=== PATIENT | female | born 1980 | race Hispanic/Latino ===

== ENCOUNTER 2017-05-28 15:13 | Emergency (ER) | payer OTHER ==
[2017-05-28] MEDS ORDERED: Ketorolac Tromethamine 30 MG/ML VIAL ONE (15:38)
== END 2017-05-28 16:06 | disposition home or self-care (01) ==
LOC: ERS 15:13
DX: G89.29 Other chronic pain (principal); M54.5 Low back pain; I11.0 Hypertensive heart disease with heart failure; I50.9 Heart failure, unspecified; F41.9 Anxiety disorder, unspecified; F32.9 Major depressive disorder, single episode, unspecified; F17.210 Nicotine dependence, cigarettes, uncomplicated
CPT/HCPCS: 96372; J1885

== ENCOUNTER 2017-10-31 08:35 | Emergency (ER) | payer OTHER, SELFPAY ==
[2017-10-31] MEDS ORDERED: Ibuprofen 800 MG TAB ONE (10:57)
--- NOTE | 2017-10-31 11:45 | RAD ---
TWO VIEWS CHEST: HISTORY: Left rib pain. COMPARISON: 05/20/07. FINDINGS: Normal cardiac silhouette. The pulmonary vessels and hilum are normal. Costophrenic angles are alex r. No consolidation or masses. No pneumothorax or osseous abnormalities. IMPRESSION: No acute cardiopulmonary process. POS: [facility]
== END 2017-10-31 12:04 | disposition home or self-care (01) ==
LOC: ERS 08:35
DX: R07.89 Other chest pain (principal); D56.9 Thalassemia, unspecified; I11.0 Hypertensive heart disease with heart failure; I50.9 Heart failure, unspecified; F41.9 Anxiety disorder, unspecified; F32.9 Major depressive disorder, single episode, unspecified; F17.210 Nicotine dependence, cigarettes, uncomplicated; X58.XXXA Exposure to other specified factors, initial encounter
CPT/HCPCS: 71046

== ENCOUNTER 2019-10-07 18:44 | Inpatient (IN) | payer SELFPAY ==
[2019-10-07] MEDS ORDERED: Ondansetron PF 4 MG/2 ML Vial ONE (18:56)
[2019-10-07] MEDS ORDERED: Morphine 4 MG/ML VIAL ONE ×2 (18:56→21:06)
[2019-10-07 19:10] LABS: Hemoglobin 11.9 g/dL (12.0-16.0); Mean Corpuscular HGB CONC 34.6 g/dL (32.0-36.0); Mean Corpuscular Volume 75.4 fL (78.0-98.0); Mean Platelet Volume 10.5 fL (7.4-10.4); Platelet Count 194 thou/uL (130-400); Red Blood Cell (RBC) Count 4.58 mill/uL (4.20-5.40); White Blood Cell (WBC) Count 11.6 thou/uL (4.8-10.8)
[2019-10-07 19:14] LABS: BHCG - Serum Negative (NEGATIVE); Pregs Control Background? CLEAR/WHITE (CLR/WHITE); Pregs Control Bar Appear? YES (CONTROL BAR)
[2019-10-07 19:23] LABS: ALT (SGPT) 50 U/L (8-55); AST (SGOT) 72 U/L (5-34); Albumin 3.6 g/dL (3.5-5.0); Alkaline Phosphatase 121 U/L (40-110); Anion Gap 16 mmol/L (10-20); BUN (Urea Nitrogen) 5 mg/dL (7.0-18.7); Bilirubin, Total 5.9 mg/dL (0.2-1.2); Calc. Creatinine Clearance 0 mL/min (70-130); Calcium 8.7 mg/dL (7.8-10.44); Carbon Dioxide 27 mmol/L (22-29); Chloride 95 mmol/L (98-107); Estimated GFR-MDRD Greater than 90; Globulin 3.1 g/dL (2.4-3.5); Glucose 97 mg/dL (70-105); Lipase 12 U/L (8-78); Protein, Total 6.7 g/dL (6.0-8.3); Sodium 135 mmol/L (136-145)
[2019-10-07 19:27] LABS: Anisocytosis SLIGHT = 6-15 cells (100X) (0-5/hpf); Band 8 % (5-11); Eosinophils 1 % (0-10); Hypochromia SLIGHT = 6-15 cells (100X) (0-5/hpf); Lymphocytes 12 % (21-51); MDiff Complete? YES; Microcytosis SLIGHT = 6-15 cells (100X) (0-5/hpf); Monocytes 5 % (0-10); Neutrophil 74 % (42-75); Ovalocytes SLIGHT = 2-5 cells (100X) (0-1/hpf); Platelet Morphology Comment Appears Adequate; Polychromasia SLIGHT = 2-3 cells (100X) (0-2/hpf); Target Cells SLIGHT = 2-5 cells (100X) (0-1/hpf)
[2019-10-07 19:33] LABS: Potassium 2.8 mmol/L (3.5-5.1)
--- NOTE | 2019-10-07 19:37 | ULT ---
ULTRASOUND ABDOMEN LIMITED: (RIGHT UPPER QUADRANT) DATE: 10/07/2019 HISTORY: 39-year-old female with postprandial abdominal pain, nausea, and vomiting FINDINGS: Poor visualization of abdominal organs due to body habitus. Gallbladder: Normal wall thickness. No evidence of pericholecystic fluid or gallstones. Liver: Enlarged. Diffusely increased echogenicity, consistent with fatty liver. Common duct caliber:6 mm. Right kidney: No hydronephrosis. Pancreas: Nonspecific sonographic appearance. IMPRESSION: 1) Hepatic steatosis and hepatomegaly. 2) common duct caliber at upper limits of normal or slightly dilated. 3) poor visualization of intra-abdominal contents due to body habitus.
[2019-10-07 20:40] LABS: Bilirubin 1+ (Negative); Blood, Urine Negative (Negative); Clarity Turbid (Clear); Glucose, Urine (Dipstick) Normal (Negative); Leukocyte 250 Leu/uL (Negative); Mucous/LPF 1+ LPF (<2+); Nitrite Negative (Negative); Protein, Urine (Dipstick) 30 mg/dL (Neg-Trace); Renal Epithelial 0-3 HPF (None Seen); Urobilinogen Greater than 12 mg/dL (Less than 2); WBC/HPF 21-50 HPF (0-3)
[2019-10-07 20:49] LABS: Bacteria/HPF 2+ HPF (None Seen)
[2019-10-07 21:08] LABS: Bilirubin, Direct 2.7 mg/dL (0.1-0.3); Bilirubin, Total 5.8 mg/dL (0.2-1.2)
[2019-10-07] MEDS ORDERED: cefTRIAXone\\ROCEPHIN 1 GM VIAL ONE ×2 (21:13→21:17)
[2019-10-07] MEDS ORDERED: Potassium Chloride 20 MEQ TAB ONE ×2 (21:13→21:17)
--- NOTE | 2019-10-07 21:31 | RAD ---
RADIOGRAPH CHEST 1 VIEW: DATE: 10/07/2019 HISTORY: 39-year-old female with cough FINDINGS: There are no airspace densities, pulmonary edema, pneumothorax, or cardiomegaly. The lateral costophr enic angles are sharp. IMPRESSION: No acute cardiopulmonary findings.
[2019-10-07 22:17] VITALS: BMI 40.5
[2019-10-07] MEDS ORDERED: Acetaminophen 650 MG Suppository PR PRN (22:32)
[2019-10-07] MEDS ORDERED: Potassium Chloride 40 MEQ in Sodium Chloride 0.9% 250 ML 250 ML IVPB SCH (23:00)
[2019-10-07] MEDS ORDERED: Magnesium 2 GM/50 ML 50 GM in Premix Bag 1 BAG IVPB SCH (23:00)
[2019-10-07 23:07] LABS: INR-International Normal Ratio 1.1; PTT 30.4 SEC (22.9-36.1); Prothrombin Time 14.6 SEC (12.0-14.7)
[2019-10-07 23:11] LABS: Amphetamine Not Detected (NotDetected); Barbiturates Screen Not Detected (NotDetected); Benzodiazepine Screen Not Detected (NotDetected); Cocaine Metabolite Screen Not Detected (NotDetected); Medtox Control Line Valid? VALID (VALID); Medtox Reader # READER 1; Methadone Not Detected (NotDetected); Methamphetamine Not Detected (NotDetected); Opiate Screen Detected (NotDetected); Oxycodone Screen Not Detected (NotDetected); Phencyclidine (PCP) Not Detected (NotDetected); THC/Cannabinoid Screen Detected (NotDetected); Tricyclic Screen Not Detected (NotDetected)
[2019-10-07 23:17] LABS: Lactic Acid 1.1 mmol/L (0.5-2.2)
[2019-10-07] MEDS: Sodium Chloride 0.9% 1,000 ML IV SCH (23:19)
--- NOTE | 2019-10-07 23:20 | RAD ---
Radiograph abdomen one view: 39-year-old female with abdominal pain, nausea, and vomiting. FINDINGS: Spleen is enlarged. Liver is enlarged. Gas present in ascending and transverse colon. Gas present in multiple nondilated small bowel loops in mid and left abdomen. No gaseous gastric distention. IMPRESSION: 1. Hepatosplenomegaly. 2. Nonobstructive bowel gas pattern.
[2019-10-07 23:22] LABS: Alcohol Less than 10 mg/dL (Less than 10); Bilirubin, Direct 2.7 mg/dL (0.1-0.3); CK (CPK) 18 U/L (29-168)
[2019-10-07] MEDS ORDERED: Magnesium 2 GM/50 ML 2 GM in Premix Bag 1 BAG IVPB SCH (23:30)
[2019-10-07] MEDS ORDERED: Ketorolac Tromethamine 30 MG/ML VIAL IVP SCH (23:45)
[2019-10-08 00:27] LABS: HBCM Index 0.12 S/CO (0-0.79); HBSAg Index 0.23 S/CO (0-0.99); Hep A IgM AB Non-Reactive (NonReactive); Hep A IgM S/CO 0.17 S/CO (0-0.79); Hep B Surf Ag Non-Reactive S/CO (NonReactive); Hep C IgG Ab Non-Reactive (NonReactive); Hep C Index 0.28 S/CO (0-0.79); Hepatitis B Core IgM Abs Non-Reactive (NonReactive)
[2019-10-08] MEDS: Thiamine HCl 200 MG/2 ML VIAL SLOW IVP SCH (00:40)
[2019-10-08 00:56] LABS: Anion Gap 13 mmol/L (10-20); BUN (Urea Nitrogen) 5 mg/dL (7.0-18.7); Calc. Creatinine Clearance 272 mL/min (70-130); Calcium 7.9 mg/dL (7.8-10.44); Carbon Dioxide 29 mmol/L (22-29); Chloride 97 mmol/L (98-107); Estimated GFR-MDRD Greater than 90; Glucose 90 mg/dL (70-105); Sodium 136 mmol/L (136-145)
[2019-10-08 01:04] LABS: Potassium 2.6 mmol/L (3.5-5.1)
--- NOTE | 2019-10-08 03:55 | PDOC.HHP ---
Hospitalist HPI - History of Present Illness n/v and abdo pain History of Present Illness: Patient presents with complaints of abdominal pain and n/v for the last month, initially it was worse in the mornings. She states it continued to worsen and for the last 3 weeks she has been unable to tolerate oral intake. Denies any weight loss. States she has been experiencing RUQ pain with increased abdominal girth. Reports having dark stools but they are not black or maroon. No bright red blood per rectum. She states the vomiting is daily and up to 5 or 6 times a day. She denies any diarrhea. Has not had any fevers at home. Has not sought medical attention until now. Reports having a history of a "fatty liver". Upon further questioning, patient states 3 weeks ago when her symptoms worsened she switched from drinking malt liquor daily, to drinking 3 glasses of sprite with vodka every day after work. Three days ago, she stopped drinking alcohol completely and denies experiencing any chills, sweats or tremors. No history of alcohol withdrawal. Reports smoking marijuana on occasion, otherwise denies any drug use. ED Course: In the ED she had labs done that were notable for a WCC of 11.6, Hgb 11.9, MCV 75.4, Platelets 194. Na+ 135, K+ 2.8, BUN 5, creat 0.58, GFR >90. Tbili elevated 5.9, AST 72, ALT 50. Lipase normal at 12. Abdo US done showed hepatic steatosis with hepatomegaly. CBD was in the upper limits of normal/slightly dilated measuring 6mm. CXR was unremarkable. UA notable for turbid urine, 250 leukocyte, 30 protin, trace ketones, urobilinogen >12, Bili 1+. 4-6 RBC, 21-50 WBC, 2+ bacteria. She was started on Rocephin for the UTI. Also given 40 mEq of PO potassium for the hypokalemia. Received 8 mg of Morphine total and Ondansetron for nausea. She also received 1L NS. Case was discussed with Dr. Macedo and Dr. Pozo, both consulted by ED physician. Per Dr. Pozo, plan is likely for MRCP/ERCP in the AM. Hospitalist ROS - Review of Systems Constitutional: reports: malaise. denies: fever, chills, sweats, weakness, other Eyes: denies: pain, vision change, conjunctivae inflammation, eyelid inflammation, redness, other ENT: denies: ear pain, ear discharge, nose pain, nose discharge, nose congestion , mouth pain, mouth swelling, throat pain, throat swelling, other Cardiovascular: denies: chest pain, palpitations, orthopnea, paroxysmal noc. dyspnea, edema, light headedness, other Gastrointestinal: reports: nausea, vomiting, abdominal pain (RUQ pain, occasional epigastric burning), other (abdominal bloating) Genitourinary: denies: dysuria, frequency, incontinence, hematuria, retention, other Musculoskeletal: denies: neck pain, shoulder pain, arm pain, back pain, hand pain, leg pain, foot pain, other Skin: reports: other (long standing chronic pruritic rash treated with selsun blue) Neurological: denies: weakness, numbness, incoordination, change in speech, confusion, seizures, other - Medication Medications: Active Medications ALLERGIES: No known drug allergies. CURRENT MEDICATIONS: None. Generic Name Dose Route Start Last Admin Trade Name Freq PRN Reason Stop Dose Admin Sodium Chloride 1,000 mls @ 65 mls/hr 10/07/19 22:45 10/07/19 23:19 Normal Saline 0.9% IV 1,000 mls .[id number] KAITLIN Administration Thiamine HCl 100 mg 10/08/19 01:00 10/08/19 00:40 Thiamine Hcl SLOW IVP 100 mg Q24HR KAITLIN Administration Hospitalist History - Past Medical History Cardiac: reports: CAD, CHF, HTN, Other (cardiomyopathy) Heme/Onc: reports: Other (Thalassemia B minor.) Psych: reports: Anxiety, Depression Musculoskeletal: reports: Chronic low back pain - Past Surgical History Past Surgical History: reports: Tubal Ligation - Social History Smoking Status: Current every day smoker Alcohol: reports: Heavy Drugs: reports: marijuana Living Situation: With Family Activity level: independent ambulation - Exam General Appearance: NAD, awake alert Eye: PERRL, anicteric sclera ENT: normocephalic atraumatic, no oropharyngeal lesions, dry oral mucosa Neck: supple, symmetric, no lymphadenopathy Heart: RRR Respiratory: CTAB, no wheezes, no rales, no ronchi, normal chest expansion, no tachypnea Gastrointestinal: soft, no guarding, no rigidity, tender to palpation, distended (soft, but distended) Extremities: no edema Skin: normal turgor Skin - other findings: erythematous pruritic areas right fore finger, left elbow , back, chronic Neurological: no focal deficits, no new deficit Musculoskeletal: normal tone, normal strength, no muscle wasting Psychiatric: normal affect, normal behavior, A&O x 3 Hospitalist Results - Labs Result Diagrams: 10/08/19 05:02 10/08/19 00:00 Lab results: WBC 11.6 thou/uL (4.8-10.8) H 10/07/19 18:56 Hgb 11.9 g/dL (12.0-16.0) L 10/07/19 18:56 Hct 34.5 % (36.0-47.0) L 10/07/19 18:56 MCV 75.4 fL (78.0-98.0) L 10/07/19 18:56 Plt Count 194 thou/uL (130-400) 10/07/19 18:56 Band Neuts % (Manual) 8 % (5-11) 10/07/19 18:56 Sodium 136 mmol/L (136-145) 10/08/19 00:00 Potassium 2.6 mmol/L (3.5-5.1) L* 10/08/19 00:00 Chloride 97 mmol/L (98-107) L 10/08/19 00:00 Carbon Dioxide 29 mmol/L (22-29) 10/08/19 00:00 BUN 5 mg/dL (7.0-18.7) L 10/08/19 00:00 Creatinine 0.51 mg/dL (0.6-1.1) L 10/08/19 00:00 Glucose 90 mg/dL (70-105) 10/08/19 00:00 Lactic Acid 1.1 mmol/L (0.5-2.2) 10/07/19 22:52 Calcium 7.9 mg/dL (7.8-10.44) 10/08/19 00:00 Total Bilirubin 5.8 mg/dL (0.2-1.2) H 10/07/19 18:56 AST 72 U/L (5-34) H 10/07/19 18:56 ALT 50 U/L (8-55) 10/07/19 18:56 Alkaline Phosphatase 121 U/L (40-110) H 10/07/19 18:56 Creatine Kinase 18 U/L (29-168) L 10/07/19 22:52 B-Natriuretic Peptide Less than 10.0 pg/mL (0-100) 10/07/19 22:52 Serum Total Protein 6.7 g/dL (6.0-8.3) 10/07/19 18:56 Albumin 3.6 g/dL (3.5-5.0) 10/07/19 18:56 Lipase 12 U/L (8-78) 10/07/19 18:56 Urine Ketones Trace mg/dL (Negative) A 10/07/19 20:11 Urine Blood Negative (Negative) 10/07/19 20:11 Urine Nitrite Negative (Negative) 10/07/19 20:11 Ur Leukocyte Esterase 250 Sam/uL (Negative) A 10/07/19 20:11 Urine RBC 4-6 HPF (0-3) A 10/07/19 20:11 Urine WBC 21-50 HPF (0-3) A 10/07/19 20:11 Ur Squamous Epith Cells 4-6 HPF (0-3) A 10/07/19 20:11 Urine Bacteria 2+ HPF (None Seen) A 10/07/19 20:11 - Radiology Interpretation US - abdomen Status: report reviewed by sd Hospitalist H&P A/P - Problem (1) Abdominal pain Code(s): R10.9 - UNSPECIFIED ABDOMINAL PAIN Status: Acute (2) Increased abdominal girth Code(s): R19.8 - OTH SYMPTOMS AND SIGNS INVOLVING THE DGSTV SYS AND ABDOMEN Status: Acute (3) Nausea & vomiting Code(s): R11.2 - NAUSEA WITH VOMITING, UNSPECIFIED Status: Acute (4) Alcohol abuse Code(s): F10.10 - ALCOHOL ABUSE, UNCOMPLICATED Status: Chronic (5) Hyperbilirubinemia Code(s): E80.6 - OTHER DISORDERS OF BILIRUBIN METABOLISM Status: Acute (6) Hepatic steatosis Code(s): K76.0 - FATTY (CHANGE OF) LIVER, NOT ELSEWHERE CLASSIFIED Status: Chronic (7) Obesity Code(s): E66.9 - OBESITY, UNSPECIFIED Status: Acute (8) Cardiomyopathy Code(s): I42.9 - CARDIOMYOPATHY, UNSPECIFIED Status: Chronic (9) Hypertension Code(s): I10 - ESSENTIAL (PRIMARY) HYPERTENSION Status: Chronic (10) Thalassemia minor Code(s): D56.3 - THALASSEMIA MINOR Status: Chronic - Plan Plan: Monitor LFTs. add-on direct bili and hepatitis panel. ED has consulted surgery and GI. For ERCP/MRCP in the AM. Patient on clear liquids. Toradol x 1 for pain. ASE protocol. Check alcohol level. Urine drug screen. Continue IV Antibiotics for UTI Urine culture pending. CODE STATUS FULL. Discussed with Dr. Givens who agrees with plan as above.
[2019-10-08] MEDS: Fentanyl 100 MCG/2 ML VIAL SLOW IVP PRN ×3 (05:06→20:18)
[2019-10-08 05:09] LABS: #Eosinphils 0.3 thou/uL (0.0-0.7); #Lymphocytes 1.7 thou/uL (1.20-3.40); #Monocytes 0.6 thou/uL (0.11-0.59); #Neutrophils 6.1 thou/uL (1.40-6.50); %Basophils 0.4 % (0.0-1.0); %Eosinophils 3.8 % (0.0-10.0); %Lymphocytes 19.3 % (21.0-51.0); %Monocytes 6.6 % (0.0-10.0); %Neutrophils 69.9 % (42.0-75.0); Hemoglobin 9.6 g/dL (12.0-16.0); Mean Corpuscular HGB CONC 34.5 g/dL (32.0-36.0); Mean Corpuscular Hemoglobin 26.1 pg (27.0-31.0); Mean Corpuscular Volume 75.8 fL (78.0-98.0); Platelet Count 149 thou/uL (130-400); RBC Distribution Width 16.8 % (11.5-14.5); Red Blood Cell (RBC) Count 3.65 mill/uL (4.20-5.40); White Blood Cell (WBC) Count 8.7 thou/uL (4.8-10.8)
[2019-10-08 05:30] LABS: ALT (SGPT) 35 U/L (8-55); AST (SGOT) 51 U/L (5-34); Albumin 2.7 g/dL (3.5-5.0); Alkaline Phosphatase 89 U/L (40-110); Anion Gap 11 mmol/L (10-20); BUN (Urea Nitrogen) 5 mg/dL (7.0-18.7); Bilirubin, Total 4.1 mg/dL (0.2-1.2); Calc. Creatinine Clearance 289 mL/min (70-130); Calcium 7.4 mg/dL (7.8-10.44); Carbon Dioxide 26 mmol/L (22-29); Chloride 100 mmol/L (98-107); Estimated GFR-MDRD Greater than 90; Globulin 2.5 g/dL (2.4-3.5); Glucose 83 mg/dL (70-105); Magnesium 2.1 mg/dL (1.6-2.6); Potassium 3.1 mmol/L (3.5-5.1); Protein, Total 5.2 g/dL (6.0-8.3); Sodium 134 mmol/L (136-145)
[2019-10-08] MEDS ORDERED: Potassium Chloride 20 MEQ in Premix Bag 1 BAG IVPB SCH ×2 (06:00→06:15)
[2019-10-08] MEDS ORDERED: Potassium Chloride 10 MEQ in Premix Bag 1 BAG IVPB SCH (06:00)
[2019-10-08] MEDS: Famotidine/PF 20 mg/2ml Vial SLOW IVP SCH ×2 (08:14→20:23)
[2019-10-08] MEDS: Folic Acid 1 MG TAB PO SCH (08:15)
[2019-10-08] MEDS ORDERED: Potassium Chloride 40 MEQ in Premix Bag 1 BAG IVPB SCH (08:45)
--- NOTE | 2019-10-08 10:09 | PDOC.EVN ---
Event Note - Event Note Event Note: Continues to report pain. Also reports that her urine has been dark, discolored and scant for about 3 weeks. Denies dysuria. Denies taking opioids or other drugs outside of EtOH and marijuana. Pain is RUQ anterior and posterior. Slight TTP in the RUQ. Not really over the GB, but seems be more under the ribs. No guarding. Heart is regular, lungs clear. No edema. Discussed with Dr. Pozo. Does not suspect cholecystitis. He anticipates EGD tomorrow. Possible UTI. Cover with abx. CT abd., pelvis to assess urinary tract. Follow up cultures. PO tramadol for pain.
[2019-10-08] MEDS: Potassium Chloride 20 MEQ in Premix Bag 1 BAG IVPB SCH ×2 (10:36→16:03)
--- NOTE | 2019-10-08 10:59 | CON ---
DATE OF CONSULTATION: 10/08/2019 REASON FOR CONSULTATION: Abdominal pain, nausea, vomiting, and questionable history of gallbladder disease. HISTORY OF PRESENT ILLNESS: Ms. Carmina Perez is a very pleasant, 39-year-old female, came to the ER last night with abdominal pain, nausea, and vomiting. The patient's abdominal pain started approximately three weeks ago. She also had nausea and vomiting off and on. The pain is over the right upper quadrant and right lumbar area and going to the right flank. The patient is not able to eat any because of abdominal pain. She also gives history of some dark stool recently. The patient had an abdominal sonogram, which revealed no gallstones. There is no gallbladder wall thickening. Also, the CBD is 6 mm upper limit of normal. Although, there is no mention of dilation of CBD, it is actually normal in caliber. The patient's liver function test is slightly high, AST is around 65 and bilirubin is 2.7. The patient has history of hypertension, cardiomyopathy, and congestive heart failure. Apparently, she was hospitalized 11 years ago and was seen by Dr. Maurice Juarez. She was transferred to [facility]. Apparently, she was on some medicine for three months and subsequently, she quit taking medications. She had done well over the last 12 years. The patient gives history of dyspnea with exertion and extreme fatigue and tiredness lately. She also has history of some allergies with coughing and sneezing. The patient had no chest pain. No palpitation. No orthopnea. No PND. The patient also gives history of having some dark stool recently. She also has history of thalassemia minor diagnosed many years ago. The patient's bowel movements are fairly regular. No history of hematochezia, but diffuse. She has had dark stool recently. Relevant to the history that she does drink alcohol heavily. She was drinking more liquor, the 24 ounces every day and now cut down to a three glass of vodka with Sprite recently. There is no history of drug abuse. ALLERGIES: NO DRUG ALLERGIES. SOCIAL HISTORY: The patient is a smoker, smokes one-half packet of cigarettes per day. She will drink alcohol heavily until recently and has cut down to a three glass of vodka. No illicit drug abuse. MEDICAL ILLNESS: 1. Hypertension, not on medication. 2. History of cardiomyopathy, CHF several years ago and not seen by expanded duty dental assistant for a long time. 3. Obesity. 4. History of thalassemia minor. SURGERIES: Status post tubal ligation. No other surgeries. FAMILY HISTORY: No family history of heart disease, cancer, stroke, hypertension, or diabetes. REVIEW OF SYSTEMS: Ten-point system reviewed. CONSTITUTIONAL: No history of any fever. No weight loss. History of fatigue with tiredness recently. HEENT: Head, no chronic headache. No dizziness. Eyes, no diplopia. No double vision or blurred vision. Ears, no hearing loss. No bleeding. Nose, no nosebleed. History of nasal congestion. Coughing over the last few weeks. Throat, no sore throat or dysphagia LUNGS: History of mild coughing and congestion. CARDIOVASCULAR SYSTEM: History of dyspnea of recent onset. No orthopnea or PND. No chest pain. ABDOMEN: Abdominal pain, nausea, vomiting, and history of some dark stools. : No dysuria, hematuria, or frequent urination. MUSCULOSKELETAL: Some back pain and arthralgias. NEUROPSYCHIATRY: Nonrelevant. PHYSICAL EXAMINATION: GENERAL: She appears comfortable, in no distress. She is obese. VITAL SIGNS: Afebrile, pulse is 81, and blood pressure 104/67. HEENT: Conjunctivae mildly icteric. NECK: Supple. No adenitis or thyromegaly noted. CARDIOVASCULAR SYSTEM: First and second heart sounds heard. LUNGS: Clear to auscultation. GI: Abdomen is soft. Abdomen is nondistended. Abdomen is tender over the right upper quadrant, right lumbar area, and over the right flank. There is no rebound or guarding. Bowel sounds active. EXTREMITIES: Reveal no edema. LABORATORY DATA: Lab data done on admission CBC; WBC is 11,600, hemoglobin 11.9, hematocrit 34.5, MCV 70.4, platelet count is 194,000, polymorphs 74, bands 8, and lymphocytes 12. Today, WBC dropping to 8700, hemoglobin 9.6, hematocrit 27.7, polymorphs 69, lymphocytes 19, and monocytes 8. Chemistry panel, she has a normal chem-7 today except for mild hypokalemia, potassium 2.6 on admission, came up to 3.1. BUN is 5, creatinine is 0.48, glucose is 83, calcium is 7.4, and magnesium is 2.1. Bilirubin yesterday was 2.7, none done today. AST is 51, ALT is 35, alkaline phosphatase 89, albumin 2.7, and globulin 2.5. Abdominal sonogram shows fatty liver, normal caliber CBD, and no gallstones or no gallbladder wall thickening. CLINICAL IMPRESSION: 1. Abdominal pain, very typical for cholecystitis, but; however, the physical findings and lab data does not support she has acute cholecystitis. She probably has fatty liver and some remote alcohol liver disease. 2. History of nausea, vomiting, and also history of some dark stool recently. 3. Obesity. 4. Hypertension. 5. History of thalassemia minor. 6. History of cardiomyopathy with heart failure in the past. RECOMMENDATION: 1. Follow up LFTs. 2. May consider EGD because of abdominal pain, nausea, vomiting, and also she has some dark stool. 3. We would recommend echocardiogram to see how her cardiac function is, as she has history of recent onset of dyspnea. Job ID: [id number]
[2019-10-08] MEDS ORDERED: Iopamidol 370 76% 100 ML VIAL ONE (13:41)
--- NOTE | 2019-10-08 14:02 | CT ---
CT ABDOMEN AND PELVIS WITH IV CONTRAST: Multiple axial tomograms obtained with IV enhancement. Oral contrast was administered. INDICATION: Abdominal pain. Right upper quadrant pain. COMPARISON: Comparison is made to a prior CT abdomen and pelvis from 2007. FINDINGS: Images through the lung bases reveal a 1 cm nodule in the anterior aspect of the right lower lobe whi ch was not present on the prior exam. This will need followup evaluation. The liver exhibits diffuse low attenuation consistent with fatty infiltration. The spleen and pancreas appear unremarkable. Gallbladder is mildly distended. No pericholecystic edema. Recent gallbladder ultrasound from yeste rday showed no evidence of gallstones. Gallbladder function studies might be of benefit if there is concern of gallbladder symptoms. Adrenal glands normal. Kidneys unremarkable. Small bowel loops appear normal. The appendix appears normal. Colon is unremarkable. Aorta normal. No adenopathy. Images through the pelvis show unremarkable uterus. There is a cyst involving the right ovary which measures up to 3 cm in the coronal plane. This exhibits peripheral enhancement possibly representing an involuting follicle. Ovaries otherwise unremarkable. IMPRESSION: 1. The gallbladder is mildly distended. No evidence of gallstones were seen on yesterday's ultrasou nd exam. Consider gallbladder function study with nuclear medicine given the history of right upper quadrant pain. 2. Right ovarian cyst. 3. Otherwise, no acute finding. POS: [facility]
--- NOTE | 2019-10-08 15:14 | CON ---
DATE OF CONSULTATION: CHIEF COMPLAINT: Abdominal pain. HISTORY OF PRESENT ILLNESS: Ms. Perez is a 39-year-old woman with about a one-month history of abdominal discomfort. She describes this as being all across to the right side and worse when she bends over. She states that for the past 3 weeks, the pain has been more constant and that she has been unable to eat normally, although she is still taking liquids. She has had episodes of nausea and vomiting, and her stool has been dark in color. She does have a history of significant alcohol intake. She states that she started drinking when she was 30. Her alcohol use was accelerated over the past year. She denies any history of withdrawal, but has not been abstinent for any prolonged period of time recently. She does notice that her skin became paler to her and also that her urine seems darker. She was evaluated in the emergency room, and an ultrasound was negative for gallstones, wall thickening, or pericholecystic fluid. She was noted to have hepatomegaly, and she does report a history of fatty liver diagnosed in the past. Her common bile duct was felt to be at the upper limits of normal or slightly dilated. Her white count was mildly elevated at 11.6, but she does not have a left shift or bandemia. Her bilirubin was quite elevated at 5.8, and this was a mixed hyperbilirubinemia with 2.7 direct. AST was mildly elevated at 72, alkaline phosphatase is mildly elevated at 121, but her other LFTs were normal. Today, her bilirubin has come down to 4.1 and her AST is 51, and her alkaline phosphatase is in the normal range now at 89. PAST MEDICAL HISTORY: Alcohol abuse, thalassemia minor, and heart failure related to , hypertension, morbid obesity with BMI 40. MEDICATIONS: She is not taking any medications at home. ALLERGIES: SHE HAS NO KNOWN DRUG ALLERGIES. PAST SURGICAL HISTORY: Tubal ligation. SOCIAL HISTORY: Positive for tobacco use and alcohol abuse and marijuana use. No other drugs. REVIEW OF SYSTEMS: Ten-system review of systems is negative except per HPI and chronic back pain. PHYSICAL EXAMINATION: VITAL SIGNS: The patient has been afebrile since her admission, heart rate 87, respirations 22, 95% saturated on room air, blood pressure 125/85. GENERAL: A pleasant woman, in no acute distress, who is comfortably resting in bed. She is slightly jaundiced, which is more noticeable on her abdominal area. She does not have any icterus of note. HEENT: Unremarkable. NECK: Supple without lymphadenopathy or thyroid nodules. HEART: Regular in its rate and rhythm. I do not appreciate any murmurs, rubs, or gallops. LUNGS: Clear to auscultation bilaterally. ABDOMEN: She does have a palpable enlarged spleen and liver, which is slightly tender. She is tender along the entire palpable portion of the liver, but without any focal tenderness in this area. No palpable masses or hernias. EXTREMITIES: Warm, well perfused. She does not have any edema. NEUROLOGIC: No focal deficits. PSYCHIATRIC: Alert, oriented, and appropriate. LABORATORY DATA: As per HPI. IMAGING: As per . ASSESSMENT: 1. Right upper quadrant pain and elevated LFTs without evidence of gallstones. Her bile duct is upper level of normal. 2. Hyperbilirubinemia with some cholestasis and some primary liver contribution most likely. Given her recent heavy alcohol use, I suspect she may have duid-ax-[id number] alcoholic hepatitis. She has thalassemia minor and chronic anemia resulting, and I have ordered an iron level. I doubt this is very high, but this could be contributing to liver disease as well. A CT has been ordered by her admitting physician, and I will await these results. I doubt that she has acalculous cholecystitis given the normal appearance of her gallbladder after 3 weeks of symptom. However, HIDA scan would be very reasonable to further evaluate for this possibility. I have not ordered it since Dr. Moody informs me that he intends to perform an EGD tomorrow morning, and I do not think that we would be able to do them both at the same time as she would receive narcotics most likely for the procedure, but this could be performed the following day if her symptoms do not resolve. If she improves, then we will defer this to outpatient. I will continue to follow while she is an inpatient, but I do not anticipate that laparoscopic cholecystectomy would be beneficial at this time. Job ID: [id number]
[2019-10-08] MEDS: Sodium Chloride 0.9% 1,000 ML IV SCH (20:24)
[2019-10-08] MEDS ORDERED: cefTRIAXone\\ROCEPHIN 2 GM in Sodium Chloride 0.9% 100 ML IVPB SCH (21:00)
[2019-10-09] MEDS: Thiamine HCl 200 MG/2 ML VIAL SLOW IVP SCH (01:25)
[2019-10-09 06:04] LABS: ALT (SGPT) 34 U/L (8-55); AST (SGOT) 67 U/L (5-34); Albumin 2.6 g/dL (3.5-5.0); Alkaline Phosphatase 87 U/L (40-110); Bilirubin, Direct 2.2 mg/dL (0.1-0.3); Bilirubin, Total 3.4 mg/dL (0.2-1.2); Protein, Total 5.3 g/dL (6.0-8.3)
[2019-10-09] MEDS: Famotidine/PF 20 mg/2ml Vial SLOW IVP SCH ×2 (09:43→20:56)
[2019-10-09] MEDS: Folic Acid 1 MG TAB PO SCH (09:43)
[2019-10-09 10:43] LABS: Anion Gap 16 mmol/L (10-20); BUN (Urea Nitrogen) Less than 4 mg/dL (7.0-18.7); Calc. Creatinine Clearance 315 mL/min (70-130); Calcium 7.7 mg/dL (7.8-10.44); Carbon Dioxide 20 mmol/L (22-29); Chloride 106 mmol/L (98-107); Estimated GFR-MDRD Greater than 90; Glucose 74 mg/dL (70-105); Potassium 3.4 mmol/L (3.5-5.1); Sodium 139 mmol/L (136-145)
[2019-10-09] MEDS: Fentanyl 100 MCG/2 ML VIAL SLOW IVP PRN (13:26)
[2019-10-09] MEDS: Sodium Chloride 0.9% 1,000 ML IV SCH ×2 (13:27→23:37)
--- NOTE | 2019-10-09 14:05 | NM ---
HEPATOBILIARY SCAN: HISTORY:Right upper quadrant abdominal pain, no gallstones and ultrasound of 10/07/2019 and distended gallbladder on the previous day CT scan RADIOPHARMACEUTICAL: 4.5 mCi Technetium 99m Mebrofenin injected intravenously FINDINGS: There is normal tracer extraction by the liver with normal excretion into the biliary tracts and smal l bowel loops and normal filling of the gallbladder. The calculated gallbladder ejection fraction following an IV infusion of 2 mcg CCK-8 over 30 minutes measures 24%. IMPRESSION:Chronic acalculous cholecystitis/gallbladder dyskinesia
--- NOTE | 2019-10-09 14:07 | PRG ---
DATE OF SERVICE: 10/09/2019 SUBJECTIVE: She still has pain in the right upper quadrant around to the right flank. She had some nausea after the CCK injection for the HIDA scan. She has had no vomiting. No bowel movement today. OBJECTIVE: VITAL SIGNS: Temperature 98.0, pulse 86, and blood pressure 133/89. GENERAL: She is in no acute distress. Alert and oriented x3. HEENT: Eyes have no scleral icterus. Oropharynx is clear without lesions. NECK: No cervical or supraclavicular lymphadenopathy. LUNGS: Clear to auscultation bilaterally. HEART: Regular rate and rhythm without murmur. ABDOMEN: Soft. She has some tenderness in the right upper quadrant, but not significant Granados's sign and she is nontender in the rest of her abdomen and the pain really is more towards her right back. EXTREMITIES: No lower extremity edema. LABORATORY DATA: White blood cell count yesterday was 8.7, hemoglobin yesterday was 9.6, and platelets 149. Creatinine 0.44, bilirubin 3.4, AST 67, ALT 34, alkaline phosphatase 87, and albumin 2.6. IMPRESSION: 1. Alcoholic hepatitis. She had been drinking a pint and a half of vodka daily. She has cut this down more recently, but the elevated AST and bilirubin with normal alkaline phosphatase and ALT. I think it is more consistent with an alcoholic hepatitis. Her liver tests are trending down at the moment. Her abdominal pain could be due to distention of Donald's capsule with the liver inflammation potentially, however, certainly another etiology is possible. 2. Right upper quadrant abdominal pain. Peptic ulcer is a consideration. She does not have evidence of gastric outlet obstruction. Contrast did go through to the more distal bowel by CT scan yesterday. She has no signs of active bleeding. If she did have an ulcer, the treatment would be with proton pump inhibitor and that can be continued without endoscopy. For diagnostic purposes in light of the COVID-19 at pandemic, elective procedures are being held and this will likely significantly change of address clerk in the short term. We will continue to treat with PPI and monitor from the standpoint. 3. Distended gallbladder by imaging. Ultrasound does not show stones or obvious inflammation of the gallbladder. She had a HIDA scan today and the results are pending. We will have to keep this in the context in the setting of acute liver disease, secretion of the contrast and metabolism in the liver may be altered such that the HIDA scan findings might not be completely reliable. I will await these results. However, with her white blood cell count having returned to normal and minimal tenderness to exam and lack of findings of acute cholecystitis by ultrasound and CT, I would be hesitant to proceed with gallbladder surgery at this point. RECOMMENDATIONS: 1. Continue proton pump inhibitor. 2. Follow trend of the liver tests. 3. Alcohol cessation. 4. We will await the HIDA scan results from today. Job ID: [id number]
--- NOTE | 2019-10-09 14:31 | PDOC.GSPN ---
Surgery Progress Note: Subj - Subjective Narrative: Patient had her HIDA scan today. She states that when they did the injection she got a little nauseated but her pain has stayed about the same. She states that the pain has been pretty much constant since its onset, but on reflection she has had indigestion with eating for a long time which she thought was just due to heartburn. The HIDA scan showed normal filling of the gallbladder, essentially ruling out acute cholecystitis, but the gallbladder ejection fraction was diminished at 25%, which is consistent with biliary dyskinesia and/ or chronic cholecystitis. Her bilirubin is continuing to slowly come down but she is still having pain. There is no evidence of blockage of the bile duct on HIDA scan. Her abdominal tenderness seems a little bit better on exam today and her vitals have been normal. She tolerated clear liquids yesterday without worsening pain or nausea. Assessment/plan: Likely chronic biliary dyskinesia given her history of indigestion. I do not think it is causing her acute pain and elevated bilirubin however. I think this is still more likely due to acute alcoholic hepatitis which appears to be improving. I discussed laparoscopic cholecystectomy with the patient, either during this hospitalization or at a later date. I explained that I suspect that her pain is related to liver disease more than gallbladder disease since biliary dyskinesia usually causes episodic pain after eating rather than constant pain and her tenderness is really more diffuse across her entire right side than focally at her gallbladder. However, it may be contributing to her nausea. This is a little difficult to say since she was having nausea and vomiting even without eating. At this point, the patient does not want to proceed with surgery, so I am going to write for a low-fat diet. If she does not tolerate her diet and has significant nausea or worsening pain with her diet then I would recommend proceeding with laparoscopic cholecystectomy. Obviously, if she undergoes laparoscopic cholecystectomy a cholangiogram would be performed, but there is no evidence on imaging of a bile duct obstruction and she does not have stones on ultrasound. If she tolerates her diet and symptomatically improves, she should still follow-up with general surgery after discharge to consider elective cholecystectomy. Surgery Progress Note: Obj - Vital signs Vital signs: Vital Signs - Most Recent Temp Pulse Resp BP Pulse Ox 98.0 F 86 16 133/89 97 10/09/19 08:00 10/09/19 08:00 10/09/19 08:00 10/09/19 08:00 10/09/19 08:00 Surgery Progress Note: Results - Labs Result Diagrams: 10/08/19 05:02 10/09/19 05:28 Lab results: Laboratory Results - last 24 hr 10/09/19 10/09/19 05:12 05:28 Sodium 139 Potassium 3.4 L Chloride 106 Carbon Dioxide 20 L Anion Gap 16 BUN Less than 4 L Creatinine 0.44 L Estimated GFR (MDRD) Greater than 90 Glucose 74 Calcium 7.7 L Total Bilirubin 3.4 H Direct Bilirubin 2.2 H AST 67 H ALT 34 Alkaline Phosphatase 87 Serum Total Protein 5.3 L Albumin 2.6 L
[2019-10-09] MEDS: Morphine 4 MG/ML VIAL SLOW IVP PRN ×2 (18:27→23:36)
[2019-10-10] MEDS: Thiamine HCl 200 MG/2 ML VIAL SLOW IVP SCH (00:35)
[2019-10-10] MEDS: traMADol HCl 50 MG TAB PO PRN ×3 (03:59→21:18)
[2019-10-10] MEDS: Morphine 4 MG/ML VIAL SLOW IVP PRN (06:25)
--- NOTE | 2019-10-10 08:16 | PRG ---
DATE OF SERVICE: 10/10/2019 SUBJECTIVE: Ms. Perez complains of bloating when she ate last night. No significant pain this morning. OBJECTIVE: She is afebrile. Vital signs are stable. Her abdomen is soft. She is diffuse, mildly tender more in the upper abdomen without guarding or rebound. LABORATORY DATA: No new LFTs this morning. ASSESSMENT: 1. Hepatitis, right upper quadrant pain, hepatitis of uncertain etiology. 2. Biliary dyskinesia with low ejection fraction on her HIDA scan, although this could be hard to interpret in the setting of liver dysfunction. PLAN: Continue to watch for now. I suspect her HIDA scan abnormality could be related to her abnormal liver function. Does not have gallstones and so her transaminase and bilirubin elevation is not secondary to gallbladder. However, we will continue to follow. Job ID: [id number]
--- NOTE | 2019-10-10 08:55 | PDOC.HOSPP ---
- Subjective Encounter Date: 10/09/19 Encounter Time: 15:00 Subjective: pt up in bed complains of pain to her abdomen area. she denies any n/v - Objective Vital Signs & Weight: Vital Signs (12 hours) Temp Pulse Resp BP Pulse Ox 10/10/19 08:00 98.1 F 82 18 122/86 97 10/10/19 04:04 98.2 F 85 18 105/73 95 10/10/19 00:07 98.1 F 97 18 134/88 98 Weight Admit Weight 251 lb 4.8 oz Weight 251 lb 4.8 oz I&O: 10/09/19 10/10/19 10/11/19 06:59 06:59 06:59 Intake Total 1380 240 Balance 1380 240 Result Diagrams: 10/08/19 05:02 10/09/19 05:28 Hospitalist ROS - Review of Systems Cardiovascular: denies: chest pain, palpitations, orthopnea, paroxysmal noc. dyspnea, edema, light headedness, other Gastrointestinal: reports: abdominal pain Genitourinary: denies: dysuria, frequency, incontinence, hematuria, retention, other Musculoskeletal: denies: neck pain, shoulder pain, arm pain, back pain, hand pain, leg pain, foot pain, other - Medication Medications: Active Medications Generic Name Dose Route Start Last Admin Trade Name Freq PRN Reason Stop Dose Admin Famotidine 20 mg 10/08/19 09:00 10/09/19 20:56 Pepcid SLOW IVP 20 mg Q12HR KAITLIN Administration Folic Acid 1 mg 10/08/19 09:00 10/09/19 09:43 Folvite PO 1 mg DAILY KAITLIN Administration Sodium Chloride 1,000 mls @ 65 mls/hr 10/07/19 22:45 10/09/19 23:37 Normal Saline 0.9% IV 1,000 mls .[id number] KAITLIN Administration Morphine Sulfate 4 mg 10/09/19 14:54 10/10/19 06:25 Morphine SLOW IVP 4 mg Q6H PRN Administration Pain Thiamine HCl 100 mg 10/08/19 01:00 10/10/19 00:35 Thiamine Hcl SLOW IVP 100 mg Q24HR KAITLIN Administration Tramadol HCl 50 mg 10/09/19 14:54 10/10/19 03:59 Ultram PO 50 mg Q8H PRN Administration Pain - Exam Neck: negative: supple, symmetric, no JVD, no thyromegaly, no lymphadenopathy, no carotid bruit, JVD Heart: negative: RRR, no murmur, no gallops, no rubs, normal peripheral pulses, irregular, diminshed peripheral pulses, murmur present, II/IV, III/IV Respiratory: negative: CTAB, no wheezes, no rales, no ronchi, normal chest expansion, no tachypnea, normal percussion, rales, rhonchi, tachypneic, wheezes Gastrointestinal: negative: soft, non-tender, non-distended, normal bowel sounds , no palpable masses, no hepatomegaly, no splenomegaly, no bruit, no guarding, no rigidity, tender to palpation, distended, diminished bowl sounds, voluntary guarding Hosp A/P (1) Abdominal pain Code(s): R10.9 - UNSPECIFIED ABDOMINAL PAIN Status: Acute (2) Cardiomyopathy Code(s): I42.9 - CARDIOMYOPATHY, UNSPECIFIED Status: Acute (3) Obesity Code(s): E66.9 - OBESITY, UNSPECIFIED Status: Acute (4) Alcohol abuse Code(s): F10.10 - ALCOHOL ABUSE, UNCOMPLICATED Status: Chronic - Plan pt's HIDA scan was abnormal. No indication of surgery. Her current pain most likely due to alcohol hepatitis. echo pending.
--- NOTE | 2019-10-10 12:56 | PRG ---
DATE OF SERVICE: 10/10/2019 SUBJECTIVE: Ms. Perez has pain in her lower back over the bilateral flank region. She has some bloating in the epigastric region, but no significant pain in her abdomen. She ate solid diet yesterday and feels more bloated today after that, but did keep it down without any vomiting. She has had no bowel movement in the last 3 days. However, on review of her CT scan, her colon was completely decompressed from a couple of days ago. OBJECTIVE: VITAL SIGNS: Temperature 98.1, pulse 90, and blood pressure 126/78. GENERAL: She is in no acute distress. Alert and oriented x3. LUNGS: Clear to auscultation bilaterally. HEART: Regular rate and rhythm without murmur. ABDOMEN: Soft, nontender, and nondistended. Bowel sounds are present. EXTREMITIES: No lower extremity edema. IMPRESSION: 1. Alcoholic hepatitis. Her liver tests have been trending down. Encouraged her to avoid all future alcohol intake. Her viral hepatitis serology is negative. I will check an iron saturation and autoimmune markers and alpha-1 antitrypsin level for baseline workup. 2. Abdominal bloating and upper abdominal pain and right upper quadrant pain. Her gallbladder is unremarkable by ultrasound. Her white count is normal. She has no significant tenderness of the right upper quadrant at this point. I do not think she has any signs of acute cholecystitis and I doubt that her gallbladder is a primary source of her symptoms at this point. Peptic ulcer is a consideration. However, endoscopy will not be expected to loom changer that she does not have an obstructive picture or bleeding and either way we would just treat with proton pump inhibitor. Overall, she is improving. RECOMMENDATIONS: 1. Continue proton pump inhibitor. 2. She is tolerating a solid diet overall. 3. Possible discharge home tomorrow if she continues to show improvement. Job ID: [id number]
[2019-10-10] MEDS: Folic Acid 1 MG TAB PO SCH (13:12)
[2019-10-10 13:30] LABS: ALT (SGPT) 42 U/L (8-55); AST (SGOT) 79 U/L (5-34); Albumin 3.5 g/dL (3.5-5.0); Alkaline Phosphatase 110 U/L (40-110); Bilirubin, Direct 2.7 mg/dL (0.1-0.3); Bilirubin, Total 4.3 mg/dL (0.2-1.2); Protein, Total 6.8 g/dL (6.0-8.3)
--- NOTE | 2019-10-10 13:52 | PDOC.HOSPP ---
- Subjective Encounter Date: 10/10/19 Encounter Time: 11:15 Subjective: pt up in bed tolerated her diet well. she has pain to her lower back. - Objective Vital Signs & Weight: Vital Signs (12 hours) Temp Pulse Resp BP Pulse Ox 10/10/19 11:50 98.1 F 90 18 126/78 97 10/10/19 08:00 98.1 F 82 18 122/86 97 10/10/19 04:04 98.2 F 85 18 105/73 95 Weight Admit Weight 251 lb 4.8 oz Weight 251 lb 4.8 oz I&O: 10/09/19 10/10/19 10/11/19 06:59 06:59 06:59 Intake Total 1380 240 Balance 1380 240 Result Diagrams: 10/08/19 05:02 10/09/19 05:28 Hospitalist ROS - Review of Systems Cardiovascular: denies: chest pain, palpitations, orthopnea, paroxysmal noc. dyspnea, edema, light headedness, other Gastrointestinal: denies: nausea, vomiting, abdominal pain, diarrhea, constipation, melena, hematochezia, other Genitourinary: denies: dysuria, frequency, incontinence, hematuria, retention, other - Medication Medications: Active Medications Generic Name Dose Route Start Last Admin Trade Name Freq PRN Reason Stop Dose Admin Folic Acid 1 mg 10/08/19 09:00 10/10/19 13:12 Folvite PO 1 mg DAILY KAITLIN Administration Pantoprazole Sodium 40 mg 10/10/19 12:45 10/10/19 13:13 Protonix PO 10/10/19 15:00 40 mg NOW KAITLIN Administration Thiamine HCl 100 mg 10/08/19 01:00 10/10/19 00:35 Thiamine Hcl SLOW IVP 100 mg Q24HR KAITLIN Administration Tramadol HCl 50 mg 10/09/19 14:54 10/10/19 13:13 Ultram PO 50 mg Q8H PRN Administration Pain - Exam Neck: negative: supple, symmetric, no JVD, no thyromegaly, no lymphadenopathy, no carotid bruit, JVD Heart: negative: RRR, no murmur, no gallops, no rubs, normal peripheral pulses, irregular, diminshed peripheral pulses, murmur present, II/IV, III/IV Respiratory: negative: CTAB, no wheezes, no rales, no ronchi, normal chest expansion, no tachypnea, normal percussion, rales, rhonchi, tachypneic, wheezes Gastrointestinal: soft Gastrointestinal - other findings: bowel sounds present, mild tenderness to right upper quadrant. Hosp A/P (1) Abdominal pain Code(s): R10.9 - UNSPECIFIED ABDOMINAL PAIN Status: Acute (2) Cardiomyopathy Code(s): I42.9 - CARDIOMYOPATHY, UNSPECIFIED Status: Acute (3) Obesity Code(s): E66.9 - OBESITY, UNSPECIFIED Status: Acute (4) Alcohol abuse Code(s): F10.10 - ALCOHOL ABUSE, UNCOMPLICATED Status: Chronic - Plan pt's HIDA scan was abnormal. No indication of surgery. Her current pain most likely due to alcohol hepatitis. echo pending. 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 she has not been taking her meds for a long time nor has she seen a steamtable worker in past few years.
[2019-10-10] MEDS: Famotidine/PF 20 mg/2ml Vial SLOW IVP SCH (14:23)
[2019-10-10] MEDS ORDERED: Potassium Chloride 20 MEQ TAB PO SCH (16:45)
[2019-10-10] MEDS: Acetaminophen 325 MG TAB PO PRN ×2 (18:35→22:49)
[2019-10-10] MEDS ORDERED: Famotidine 20 MG TAB PO SCH (21:00)
[2019-10-11] MEDS: Thiamine HCl 200 MG/2 ML VIAL SLOW IVP SCH (01:34)
[2019-10-11] MEDS: traMADol HCl 50 MG TAB PO PRN ×2 (07:19→20:00)
[2019-10-11] MEDS: Ondansetron PF 4 MG/2 ML Vial IVP PRN ×2 (08:39→16:28)
[2019-10-11] MEDS: Folic Acid 1 MG TAB PO SCH (08:39)
[2019-10-11 08:52] LABS: #Eosinphils 0.3 thou/uL (0.0-0.7); #Lymphocytes 1.1 thou/uL (1.20-3.40); #Monocytes 0.6 thou/uL (0.11-0.59); #Neutrophils 6.8 thou/uL (1.40-6.50); %Basophils 0.3 % (0.0-1.0); %Eosinophils 3.4 % (0.0-10.0); %Lymphocytes 12.7 % (21.0-51.0); %Monocytes 6.8 % (0.0-10.0); %Neutrophils 76.8 % (42.0-75.0); Hemoglobin 10.3 g/dL (12.0-16.0); Mean Corpuscular HGB CONC 33.1 g/dL (32.0-36.0); Mean Corpuscular Hemoglobin 25.9 pg (27.0-31.0); Mean Corpuscular Volume 78.3 fL (78.0-98.0); Mean Platelet Volume 9.4 fL (7.4-10.4); Platelet Count 183 thou/uL (130-400); RBC Distribution Width 16.6 % (11.5-14.5); Red Blood Cell (RBC) Count 3.97 mill/uL (4.20-5.40); White Blood Cell (WBC) Count 8.8 thou/uL (4.8-10.8)
[2019-10-11 09:13] LABS: ALT (SGPT) 35 U/L (8-55); AST (SGOT) 67 U/L (5-34); Albumin 2.8 g/dL (3.5-5.0); Alkaline Phosphatase 84 U/L (40-110); Anion Gap 13 mmol/L (10-20); BUN (Urea Nitrogen) Less than 4 mg/dL (7.0-18.7); Bilirubin, Total 3.4 mg/dL (0.2-1.2); Calc. Creatinine Clearance 308 mL/min (70-130); Calcium 8.2 mg/dL (7.8-10.44); Carbon Dioxide 22 mmol/L (22-29); Chloride 104 mmol/L (98-107); Estimated GFR-MDRD Greater than 90; Globulin 2.7 g/dL (2.4-3.5); Glucose 85 mg/dL (70-105); Potassium 3.5 mmol/L (3.5-5.1); Protein, Total 5.5 g/dL (6.0-8.3); Sodium 135 mmol/L (136-145)
--- NOTE | 2019-10-11 11:54 | PDOC.HOSPP ---
- Subjective Encounter Date: 10/11/19 Encounter Time: 10:30 Subjective: pt up in bed complains of abdomen pain and some nausea today. she states that she ate chicken fried steak. - Objective Vital Signs & Weight: Vital Signs (12 hours) Temp Pulse Resp BP BP Pulse Ox 10/11/19 11:45 98.2 F 81 18 128/92 H 99 10/11/19 08:00 97.9 F 88 18 140/94 H 140/94 H 95 Weight Admit Weight 251 lb 4.8 oz Weight 251 lb 4.8 oz I&O: 10/10/19 10/11/19 10/12/19 06:59 06:59 06:59 Intake Total 240 Balance 240 Result Diagrams: 10/11/19 08:37 10/11/19 08:37 Hospitalist ROS - Review of Systems Cardiovascular: denies: chest pain, palpitations, orthopnea, paroxysmal noc. dyspnea, edema, light headedness, other Gastrointestinal: reports: nausea, abdominal pain Genitourinary: denies: dysuria, frequency, incontinence, hematuria, retention, other Musculoskeletal: denies: neck pain, shoulder pain, arm pain, back pain, hand pain, leg pain, foot pain, other - Medication Medications: Active Medications Generic Name Dose Route Start Last Admin Trade Name Freq PRN Reason Stop Dose Admin Acetaminophen 650 mg 10/10/19 18:30 10/10/19 22:49 Tylenol PO 650 mg Q4H PRN Administration Pain Folic Acid 1 mg 10/08/19 09:00 10/11/19 08:39 Folvite PO 1 mg DAILY KAITLIN Administration Ondansetron HCl 4 mg 10/07/19 22:32 10/11/19 08:39 Zofran IVP 4 mg Q6H PRN Administration Nausea/Vomiting Pantoprazole Sodium 40 mg 10/11/19 09:00 10/11/19 08:39 Protonix PO 40 mg DAILY KAITLIN Administration Thiamine HCl 100 mg 10/08/19 01:00 10/11/19 01:34 Thiamine Hcl SLOW IVP 100 mg Q24HR KAITLIN Administration Tramadol HCl 50 mg 10/09/19 14:54 10/11/19 07:19 Ultram PO 50 mg Q8H PRN Administration Pain - Exam Heart: negative: RRR, no murmur, no gallops, no rubs, normal peripheral pulses, irregular, diminshed peripheral pulses, murmur present, II/IV, III/IV Respiratory: negative: CTAB, no wheezes, no rales, no ronchi, normal chest expansion, no tachypnea, normal percussion, rales, rhonchi, tachypneic, wheezes Gastrointestinal: soft, normal bowel sounds Gastrointestinal - other findings: pain to her right upper quadrant Extremities: negative: no cyanosis, no clubbing, no edema, 1+ LE edema, 2+ LE edema, clubbing Hosp A/P (1) Abdominal pain Code(s): R10.9 - UNSPECIFIED ABDOMINAL PAIN Status: Acute (2) Cardiomyopathy Code(s): I42.9 - CARDIOMYOPATHY, UNSPECIFIED Status: Acute (3) Obesity Code(s): E66.9 - OBESITY, UNSPECIFIED Status: Acute (4) Alcohol abuse Code(s): F10.10 - ALCOHOL ABUSE, UNCOMPLICATED Status: Chronic - Plan pt's HIDA scan was abnormal. No indication of surgery. Her current pain most likely due to alcohol hepatitis. echo pending. 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 she has not been taking her meds for a long time nor has she seen a flight simulator teacher in past few years. 10/10 spoke to cardiology about her low ef. recommended coreg 3.125mg bid. she also was educated against drinking alcohol. will watch her overnight if no events possible discharge in am.
[2019-10-11] MEDS: Acetaminophen 325 MG TAB PO PRN ×2 (12:36→22:11)
--- NOTE | 2019-10-11 14:39 | PRG ---
DATE OF SERVICE: 10/11/2019 SUBJECTIVE: Ms. Perez has had nausea today. She has not gotten up and moved around much today, but she did walk some yesterday. OBJECTIVE: VITAL SIGNS: Temperature 98.2, pulse 81, and blood pressure 128/92. GENERAL: She is in no acute distress. Alert and oriented x3. LUNGS: Clear to auscultation bilaterally. HEART: Regular rate and rhythm without murmur. ABDOMEN: Soft, nontender, and nondistended. Bowel sounds are present. EXTREMITIES: No lower extremity edema. IMPRESSION: 1. Alcoholic hepatitis. This is stable. 2. Nausea. The abdominal pain does not seem to be as prominent today, but the nausea is worse. She has been tolerating a solid diet. RECOMMENDATIONS: 1. Proton pump inhibitor daily. 2. Symptomatic treatment with Zofran. 3. Continue heart-healthy diet. Job ID: [id number]
[2019-10-11] MEDS: Carvedilol 3.125 MG TAB PO SCH (16:23)
[2019-10-12 06:04] LABS: #Eosinphils 0.2 thou/uL (0.0-0.7); #Lymphocytes 1.4 thou/uL (1.20-3.40); #Monocytes 0.6 thou/uL (0.11-0.59); #Neutrophils 5.9 thou/uL (1.40-6.50); %Basophils 0.4 % (0.0-1.0); %Lymphocytes 16.6 % (21.0-51.0); %Monocytes 7.6 % (0.0-10.0); %Neutrophils 72.4 % (42.0-75.0); Hemoglobin 10.2 g/dL (12.0-16.0); Mean Corpuscular Hemoglobin 26.1 pg (27.0-31.0); Mean Corpuscular Volume 76.7 fL (78.0-98.0); Mean Platelet Volume 9.8 fL (7.4-10.4); Platelet Count 192 thou/uL (130-400); RBC Distribution Width 16.6 % (11.5-14.5); Red Blood Cell (RBC) Count 3.92 mill/uL (4.20-5.40); White Blood Cell (WBC) Count 8.2 thou/uL (4.8-10.8)
[2019-10-12 06:23] LABS: ALT (SGPT) 36 U/L (8-55); AST (SGOT) 73 U/L (5-34); Albumin 2.9 g/dL (3.5-5.0); Alkaline Phosphatase 84 U/L (40-110); Anion Gap 10 mmol/L (10-20); BUN (Urea Nitrogen) 4 mg/dL (7.0-18.7); Bilirubin, Total 3.2 mg/dL (0.2-1.2); Calc. Creatinine Clearance 295 mL/min (70-130); Calcium 8.4 mg/dL (7.8-10.44); Carbon Dioxide 26 mmol/L (22-29); Chloride 102 mmol/L (98-107); Estimated GFR-MDRD Greater than 90; Globulin 2.9 g/dL (2.4-3.5); Glucose 79 mg/dL (70-105); Potassium 3.4 mmol/L (3.5-5.1); Protein, Total 5.8 g/dL (6.0-8.3); Sodium 135 mmol/L (136-145)
[2019-10-12] MEDS: traMADol HCl 50 MG TAB PO PRN ×3 (08:07→23:49)
[2019-10-12] MEDS: Ondansetron PF 4 MG/2 ML Vial IVP PRN ×3 (08:08→22:18)
[2019-10-12] MEDS: Folic Acid 1 MG TAB PO SCH (08:09)
[2019-10-12] MEDS: Carvedilol 3.125 MG TAB PO SCH ×2 (08:09→16:31)
[2019-10-12] MEDS: Thiamine HCl 200 MG/2 ML VIAL SLOW IVP SCH (08:10)
[2019-10-12] MEDS ORDERED: Potassium Chloride 20 MEQ TAB PO SCH (10:00)
--- NOTE | 2019-10-12 13:47 | PRG ---
DATE OF SERVICE: 10/12/2019 SUBJECTIVE: Ms. Perez had part of an omelet at 7:30 this morning and then vomited later in the morning. She still has the right upper quadrant pain. OBJECTIVE: VITAL SIGNS: Temperature 98.5, pulse 82, and blood pressure 138/91. GENERAL: She is in no acute distress. Alert and oriented x3. LUNGS: Clear to auscultation bilaterally. HEART: Regular rate and rhythm without murmur. ABDOMEN: Soft, tender in the right upper quadrant without guarding. Bowel sounds are present. EXTREMITIES: No lower extremity edema. LABORATORY DATA: White blood cell count 8.2, hemoglobin 10.2, and platelets 192. INR 1.1. Creatinine 0.47, bilirubin 3.2, AST 73, ALT 36, alkaline phosphatase 84, and albumin 2.9. IMPRESSION: 1. Right upper quadrant abdominal pain. This may be secondary to distention of the liver capsule secondary to alcoholic hepatitis. Her gallbladder workup has been negative overall with no stones. Her white count is normal. With that being said, her bilirubin remains elevated and her bile ducts were very slightly dilated at 6 mm on the ultrasound and we are making no progress in her symptoms. I will plan MRCP today to rule out choledocholithiasis. 2. Elevated liver tests. Most consistent with alcoholic hepatitis given her history. The AST greater than ALT and elevated bilirubin. RECOMMENDATIONS: 1. MRCP today. 2. If the MRCP is negative, then she can likely discharge home tomorrow with a low-fat diet. Job ID: [id number]
--- NOTE | 2019-10-12 14:13 | PDOC.HOSPP ---
- Subjective Encounter Date: 10/12/19 Encounter Time: 11:45 Subjective: pt up in bed stated she has emesis after eating her breakfast. - Objective Vital Signs & Weight: Vital Signs (12 hours) Temp Pulse Resp BP BP Pulse Ox 10/12/19 12:14 98.5 F 82 20 138/91 H 97 10/12/19 11:51 97.9 F 87 16 106/72 106/72 96 10/12/19 08:00 97.8 F 108 H 18 133/92 H 133/92 H 98 Weight Admit Weight 251 lb 4.8 oz Weight 251 lb 4.8 oz I&O: 10/11/19 10/12/19 10/13/19 06:59 06:59 06:59 Intake Total 240 Output Total 300 Balance -60 Result Diagrams: 10/12/19 05:28 10/12/19 05:28 Hospitalist ROS - Review of Systems Cardiovascular: denies: chest pain, palpitations, orthopnea, paroxysmal noc. dyspnea, edema, light headedness, other Gastrointestinal: reports: nausea, vomiting, abdominal pain. denies: diarrhea, constipation, melena, hematochezia, other Genitourinary: denies: dysuria, frequency, incontinence, hematuria, retention, other - Medication Medications: Active Medications Generic Name Dose Route Start Last Admin Trade Name Freq PRN Reason Stop Dose Admin Acetaminophen 650 mg 10/10/19 18:30 10/11/19 22:11 Tylenol PO 650 mg Q4H PRN Administration Pain Carvedilol 3.125 mg 10/11/19 17:00 10/12/19 08:09 Coreg PO 3.125 mg BID-WM KAITLIN Administration Folic Acid 1 mg 10/08/19 09:00 10/12/19 08:09 Folvite PO 1 mg DAILY KAITLIN Administration Ondansetron HCl 4 mg 10/07/19 22:32 10/12/19 08:08 Zofran IVP 4 mg Q6H PRN Administration Nausea/Vomiting Pantoprazole Sodium 40 mg 10/11/19 09:00 10/12/19 08:09 Protonix PO 40 mg DAILY KAITLIN Administration Sodium Chloride 10 ml 10/07/19 22:32 10/12/19 08:26 Flush - Normal Saline IVF 10 ml Q12HR PRN Administration Saline Flush Thiamine HCl 100 mg 10/08/19 01:00 10/12/19 08:10 Thiamine Hcl SLOW IVP 100 mg Q24HR KAITLIN Administration Tramadol HCl 50 mg 10/09/19 14:54 10/12/19 08:07 Ultram PO 50 mg Q8H PRN Administration Pain - Exam Heart: negative: RRR, no murmur, no gallops, no rubs, normal peripheral pulses, irregular, diminshed peripheral pulses, murmur present, II/IV, III/IV Respiratory: negative: CTAB, no wheezes, no rales, no ronchi, normal chest expansion, no tachypnea, normal percussion, rales, rhonchi, tachypneic, wheezes Gastrointestinal: soft, non-distended, tender to palpation Gastrointestinal - other findings: right upper quadrant Hosp A/P (1) Abdominal pain Code(s): R10.9 - UNSPECIFIED ABDOMINAL PAIN Status: Acute (2) Cardiomyopathy Code(s): I42.9 - CARDIOMYOPATHY, UNSPECIFIED Status: Acute Plan: stable (3) Obesity Code(s): E66.9 - OBESITY, UNSPECIFIED Status: Acute (4) Alcohol abuse Code(s): F10.10 - ALCOHOL ABUSE, UNCOMPLICATED Status: Chronic (5) Right lower lobe pulmonary nodule Code(s): R91.1 - SOLITARY PULMONARY NODULE Status: Acute (6) Hepatic steatosis Code(s): K76.0 - FATTY (CHANGE OF) LIVER, NOT ELSEWHERE CLASSIFIED Status: Acute (7) Alcoholic hepatitis Code(s): K70.10 - ALCOHOLIC HEPATITIS WITHOUT ASCITES Status: Acute - Plan pt's HIDA scan was abnormal. No indication of surgery. Her current pain most likely due to alcohol hepatitis. echo pending. 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 she has not been taking her meds for a long time nor has she seen a penology professor in past few years. 10/10 spoke to cardiology about her low ef. recommended coreg 3.125mg bid. she also was educated against drinking alcohol. will watch her overnight if no events possible discharge in am. 10/11 spoke with gi will get MRCP. will keep her npo to rule out choledocholithiasis.
--- NOTE | 2019-10-12 15:51 | MRI ---
MRI OF THE ABDOMEN WITHOUT CONTRAST: Comparison: Hepatobiliary scan, 10-09-2019; CT abdomen and pelvis 10-08-2019. History: Right upper quadrant abdominal pain, elevated LFTs. Distended gallbladder on CT. Technique: Multiplanar, multisequence MR images are obtained of the abdomen without contrast. MRCP im ages were performed. 3D rotation reformats were performed. FINDINGS: Sludge is seen in the dependent aspect of the gallbladder. No obvious gallstones are seen in the gall bladder. No biliary dilatation is seen. The common bile duct is normal in caliber. There is diffuse loss of signal in the liver on [id number] images consistent with diffuse fatty inf iltration. No focal liver lesions are seen. The kidneys, adrenal glands, and spleen are unremarkable. There is a 1.2 cm well circumscribed cystic lesion adjacent to the pancreatic body. This does not ap pear to communicate with the pancreatic duct. No abdominal adenopathy is seen. No marrow signal abnormality is present. IMPRESSION: 1. Fatty liver. 2. Gallbladder sludge. 3. Cystic lesion near the pancreatic body may represent a small simple pancreatic cyst. POS: EAA
--- NOTE | 2019-10-12 18:39 | PRG ---
DATE OF SERVICE: 10/12/2019 SUBJECTIVE: Ms. Perez had her MRI performed. This shows no evidence of choledocholithiasis. Fatty liver consistent with alcoholic liver disease, is seen by the MRI. I suspect the right upper quadrant pain is related to distention of the Donald's capsule around the liver related to alcoholic hepatitis. There is no evidence of gallstone. Primary treatment now is symptomatic. She can receive antiemetics as needed. She will need to abstain from all alcohol use. She can follow up in GI clinic in a month. I will sign off. Please call if GI can be of assistance. Job ID: [id number]
[2019-10-12 18:45] LABS: Bacteria/HPF None Seen HPF (None Seen); Bilirubin Negative (Negative); Blood, Urine Negative (Negative); Clarity Clear (Clear); Glucose, Urine (Dipstick) Normal (Negative); Leukocyte 75 Leu/uL (Negative); Nitrite Negative (Negative); Protein, Urine (Dipstick) Negative (Neg-Trace); RBC/HPF 0-3 HPF (0-3); Squamous Epithelial 0-3 HPF (0-3); Urobilinogen Greater than 12 mg/dL (Less than 2)
[2019-10-13] MEDS: Thiamine HCl 200 MG/2 ML VIAL SLOW IVP SCH (01:30)
[2019-10-13] MEDS: traMADol HCl 50 MG TAB PO PRN (07:59)
[2019-10-13] MEDS: Ondansetron PF 4 MG/2 ML Vial IVP PRN (07:59)
[2019-10-13] MEDS: Carvedilol 3.125 MG TAB PO SCH (08:00)
[2019-10-13] MEDS: Folic Acid 1 MG TAB PO SCH (08:00)
[2019-10-13 11:29] VITALS: BP 125/91; TEMP 97.5
[2019-10-13] MEDS: Acetaminophen 325 MG TAB PO PRN (12:07)
--- NOTE | 2019-10-13 14:16 | DIS ---
DATE OF ADMISSION: 10/07/2019 DATE OF DISCHARGE: 10/13/2019 DISCHARGE DIAGNOSES: As of the following; 1. Right upper quadrant pain. 2. Alcoholic hepatitis. 3. Biliary sludge. 4. Right lower pulmonary nodule. 5. Hepatic steatosis. 6. Alcohol abuse. 7. Obesity. 8. Cardiomyopathy, related, nonischemic, stable. HOSPITAL COURSE: The patient is a 39-year-old female, who initially presented to the hospital on the with abdominal pain, nausea, vomiting. At this time, she had a right upper quadrant ultrasound done that indicated hepatic steatosis and hepatomegaly and also her common bile duct was dilated, upper limits of normal. GI and Surgery were consulted. GI thought that her symptoms were more consistent with alcoholic hepatitis. She also underwent a HIDA scan, which did indicate that her EF was lower of 24, indicated chronic acalculous cholecystitis, gallbladder dyskinesia; however, no surgical intervention was recommended. The patient initially did well, however, after having a fatty meal, she started having some nausea, vomiting, abdominal pain. At this time, she underwent an MRCP, which indicated fatty liver and gallbladder sludge, cystic lesion in the pancreatic body, which was a small simple pancreatic cyst. The patient also had an echocardiogram during this hospital stay indicated an EF of 45% to 50%. She did state that she did have a history of cardiomyopathy and I did review her Cardiology's notes, this has been a while back, it was in the old system. The patient currently is not on any medications. Cardiology, recommended to start her on Coreg 3.125 twice a day. I have advised the patient to refrain from alcohol use. She understands that. MEDICATIONS: Her discharge home medications will be; 1. Thiamine. 2. Folic acid. 3. Carvedilol 3.125 p.o. daily. PHYSICAL EXAMINATION: VITAL SIGNS: Today, temperature of 98.3, pulse 91, respirations 20, saturations 98% on room air, blood pressure 125/91. GENERAL: She is awake, alert, and oriented x3. Does not appear in distress. CV: S1 and S2 present. No murmurs, rubs, or gallops. ABDOMEN: Soft. Mild tenderness to the right upper quadrant, otherwise normal. She will be discharged to home today. She did eat a meal and she was able to keep it down. I did advise her against the low fat low cholesterol diet. I also told her if her symptoms worsen, that she needs to come back into the hospital. Job ID: [id number]
== END 2019-10-13 14:15 | disposition home or self-care (01) | DRG 432 ==
LOC: ERS 18:44 → T4-B 21:16
PROVIDERS: ADMIT Internal Medicine; ATTEND Internal Medicine
DX: K70.10 Alcoholic hepatitis without ascites (principal); O90.3 Peripartum cardiomyopathy; I42.8 Other cardiomyopathies; Z68.41 Body mass index [BMI] 40.0-44.9, adult; K83.8 Other specified diseases of biliary tract; R91.8 Other nonspecific abnormal finding of lung field; K76.0 Fatty (change of) liver, not elsewhere classified; E87.6 Hypokalemia; I25.10 Atherosclerotic heart disease of native coronary artery without angina pectoris; F41.9 Anxiety disorder, unspecified; F32.9 Major depressive disorder, single episode, unspecified; G89.29 Other chronic pain; M54.5 Low back pain; D56.3 Thalassemia minor; I50.9 Heart failure, unspecified; I11.0 Hypertensive heart disease with heart failure; F17.210 Nicotine dependence, cigarettes, uncomplicated; E66.01 Morbid (severe) obesity due to excess calories; Z98.51 Tubal ligation status
CPT/HCPCS: 36415; 71045; 74018; 74177; 74181; 76705; 78227; 80048; 80053; 80074; 80076; 80306; 80307; 81001; 81003; 81015; 82247; 82248; 82550; 83540; 83605; 83690; 83735; 83880; 84703; 85025; 85610; 85730; 87086; 93306; 96361; 96365; 96375; 96376; A9537; J0696; J1885; J2270; J2405; J3010; J3411; J3475; J3480; J3490; J7050; Q9967; S0028

== ENCOUNTER 2020-11-18 20:22 | Emergency (ER) | payer SELFPAY ==
[2020-11-18] MEDS ORDERED: Ketorolac Tromethamine 30 MG/ML VIAL ONE (22:12)
[2020-11-18] MEDS ORDERED: Metoclopramide HCl 10 MG/2 ML VIAL ONE (22:12)
[2020-11-18 22:34] LABS: BHCG - Serum Negative (NEGATIVE); Pregs Control Background? CLEAR/WHITE (CLR/WHITE); Pregs Control Bar Appear? YES (CONTROL BAR)
[2020-11-18 22:41] LABS: ALT (SGPT) 19 U/L (8-55); AST (SGOT) 12 U/L (5-34); Albumin 4.3 g/dL (3.5-5.0); Alkaline Phosphatase 109 U/L (40-110); Anion Gap 12 mmol/L (10-20); BUN (Urea Nitrogen) 8 mg/dL (7.0-18.7); Bilirubin, Total 1.8 mg/dL (0.2-1.2); Calc. Creatinine Clearance 0 mL/min (70-130); Calcium 9.6 mg/dL (7.8-10.44); Carbon Dioxide 27 mmol/L (22-29); Chloride 102 mmol/L (98-107); Globulin 3.2 g/dL (2.4-3.5); Glucose 98 mg/dL (70-105); Hemoglobin 12.1 g/dL (12.0-16.0); Mean Corpuscular HGB CONC 31.5 g/dL (32.0-36.0); Mean Corpuscular Hemoglobin 19.8 pg (27.0-31.0); Mean Corpuscular Volume 62.9 fL (78.0-98.0); Mean Platelet Volume 11.2 fL (7.4-10.4); Platelet Count 235 thou/uL (130-400); Potassium 3.7 mmol/L (3.5-5.1); Protein, Total 7.5 g/dL (6.0-8.3); RBC Distribution Width 14.1 % (11.5-14.5); Red Blood Cell (RBC) Count 6.11 mill/uL (4.20-5.40); Sodium 137 mmol/L (136-145); White Blood Cell (WBC) Count 12.2 thou/uL (4.8-10.8)
[2020-11-18 22:50] LABS: #Basophils 0.1 thou/uL (0.0-0.2); #Eosinphils 0.1 thou/uL (0.0-0.7); #Lymphocytes 2.7 thou/uL (1.20-3.40); #Monocytes 0.8 thou/uL (0.11-0.59); #Neutrophils 8.4 thou/uL (1.40-6.50); %Basophils 0.6 % (0.0-1.0); %Lymphocytes 22.1 % (21.0-51.0); %Monocytes 6.9 % (0.0-10.0); %Neutrophils 69.4 % (42.0-75.0); Hypochromia SLIGHT = 6-15 cells (100X) (0-5/hpf); Large Platelets SLIGHT; MDiff Complete? YES; Microcytosis MODERATE=15-30 cells (100X) (0-5/hpf); Platelet Morphology Comment Appears Adequate
[2020-11-19 01:54] LABS: SARS-CoV-2 PCR by NAA Not Detected (NotDetected)
== END 2020-11-18 23:19 | disposition home or self-care (01) ==
LOC: ERS 20:22
DX: R51.9 Headache, unspecified (principal); R50.9 Fever, unspecified; M79.10 Myalgia, unspecified site; Z20.822 Contact with and (suspected) exposure to COVID-19; I11.0 Hypertensive heart disease with heart failure; I50.9 Heart failure, unspecified; I42.9 Cardiomyopathy, unspecified; F17.210 Nicotine dependence, cigarettes, uncomplicated; Z79.899 Other long term (current) drug therapy
CPT/HCPCS: 71045; 80053; 84703; 85025; 87635; 96374; 96375; J1885; J2765; U0003; U0005

== ENCOUNTER 2022-05-05 21:19 | Inpatient (IN) | payer SELFPAY ==
[2022-05-05] MEDS ORDERED: Nitroglycerin 2% Ointment 1 INCH/1 GM Packet ONE (21:42)
[2022-05-05] MEDS ORDERED: Aspirin 325 MG TAB ONE (21:42)
[2022-05-05 22:33] LABS: BHCG - Serum Negative (NEGATIVE); Pregs Control Background? CLEAR/WHITE (CLR/WHITE); Pregs Control Bar Appear? YES (CONTROL BAR)
[2022-05-05 22:42] LABS: ALT (SGPT) 74 U/L (8-55); AST (SGOT) 47 U/L (5-34); Albumin 4.1 g/dL (3.5-5.0); Alkaline Phosphatase 109 U/L (40-110); Anion Gap 16 mmol/L (10-20); BUN (Urea Nitrogen) Less than 4 mg/dL (7.0-18.7); CK (CPK) 63 U/L (29-168); Calc. Creatinine Clearance 0 mL/min (70-130); Calcium 8.5 mg/dL (7.8-10.44); Carbon Dioxide 24 mmol/L (22-29); Chloride 106 mmol/L (98-107); Estimated GFR 115; Globulin 3.1 g/dL (2.4-3.5); Glucose 126 mg/dL (70-105); Lipase 13 U/L (8-78); Protein, Total 7.2 g/dL (6.0-8.3); Sodium 143 mmol/L (136-145)
[2022-05-05 22:45] LABS: Acetaminophen Less than 10.0 mcg/mL (10.0-30.0); Alcohol 216 mg/dL (Less than 10); Salicylate Less than 8.0 mg/dL (15.0-30.0)
[2022-05-05 22:47] LABS: Potassium 2.9 mmol/L (3.5-5.1)
[2022-05-05 22:57] LABS: #Lymphocytes 1.4 thou/uL (1.20-3.40); #Monocytes 0.4 thou/uL (0.11-0.59); #Neutrophils 4.1 thou/uL (1.40-6.50); %Basophils 0.8 % (0.0-1.0); %Eosinophils 0.8 % (0.0-10.0); %Lymphocytes 23.9 % (21.0-51.0); %Monocytes 6.1 % (0.0-10.0); %Neutrophils 68.5 % (42.0-75.0); Anisocytosis SLIGHT = 6-15 cells (100X) (0-5/hpf); Hemoglobin 12.2 g/dL (12.0-16.0); MDiff Complete? YES; Mean Corpuscular HGB CONC 32.6 g/dL (32.0-36.0); Mean Corpuscular Volume 70.5 fL (78.0-98.0); Mean Platelet Volume 9.8 fL (7.4-10.4); Microcytosis SLIGHT = 6-15 cells (100X) (0-5/hpf); Platelet Count 230 thou/uL (130-400)
[2022-05-05] MEDS ORDERED: Potassium Chloride 20 MEQ TAB ONE (23:05)
[2022-05-05] MEDS ORDERED: Furosemide 40 MG/4 ML VIAL ONE (23:05)
[2022-05-06] MEDS ORDERED: Potassium Chloride 20 MEQ TAB PO SCH ×2 (01:30→08:00)
[2022-05-06] MEDS ORDERED: Ondansetron ODT 4 MG TAB PO PRN (01:30)
[2022-05-06] MEDS ORDERED: Acetaminophen 650 MG Suppository PR PRN (01:30)
[2022-05-06] MEDS ORDERED: Ondansetron PF 4 MG/2 ML Vial IVP PRN (01:30)
[2022-05-06 02:07] LABS: Bacteria/HPF None Seen HPF (None Seen); Bilirubin Negative (Negative); Blood, Urine 1+ (Negative); Clarity Clear (Clear); Glucose, Urine (Dipstick) Normal (Negative); Ketone, Urine Negative (Negative); Leukocyte Negative Leu/uL (Negative); Nitrite Negative (Negative); Protein, Urine (Dipstick) Negative (Neg-Trace); RBC/HPF 0-3 HPF (0-3); Squamous Epithelial 0-3 HPF (0-3); Urobilinogen Normal mg/dL (Less than 2); WBC/HPF 0-3 HPF (0-3); pH, Urine 7.5 (5.0-9.0)
[2022-05-06 02:15] LABS: Amphetamine Not Detected (NotDetected); Barbiturates Screen Not Detected (NotDetected); Benzodiazepine Screen Detected (NotDetected); Cocaine Metabolite Screen Not Detected (NotDetected); Methadone Not Detected (NotDetected); Methamphetamine Detected (NotDetected); Opiate Screen Not Detected (NotDetected); Oxycodone Screen Not Detected (NotDetected); Phencyclidine (PCP) Not Detected (NotDetected); THC/Cannabinoid Screen Detected (NotDetected); Tricyclic Screen Not Detected (NotDetected)
[2022-05-06] MEDS: Acetaminophen 325 MG TAB PO PRN (02:15)
[2022-05-06 02:41] LABS: #Basophils 0.1 thou/uL (0.0-0.2); #Eosinphils 0.1 thou/uL (0.0-0.7); #Monocytes 0.3 thou/uL (0.11-0.59); #Neutrophils 4.8 thou/uL (1.40-6.50); %Basophils 0.8 % (0.0-1.0); %Eosinophils 1.7 % (0.0-10.0); %Lymphocytes 27.2 % (21.0-51.0); %Monocytes 3.8 % (0.0-10.0); %Neutrophils 66.6 % (42.0-75.0); Hemoglobin 12.2 g/dL (12.0-16.0); Mean Corpuscular HGB CONC 32.6 g/dL (32.0-36.0); Mean Corpuscular Hemoglobin 22.8 pg (27.0-31.0); Mean Corpuscular Volume 70.2 fL (78.0-98.0); Mean Platelet Volume 9.7 fL (7.4-10.4); Platelet Count 238 thou/uL (130-400); RBC Distribution Width 14.7 % (11.5-14.5); Red Blood Cell (RBC) Count 5.35 mill/uL (4.20-5.40); White Blood Cell (WBC) Count 7.2 thou/uL (4.8-10.8)
[2022-05-06 02:52] LABS: Phosphorus 3.1 mg/dL (2.3-4.7)
[2022-05-06 02:53] LABS: Magnesium 1.6 mg/dL (1.6-2.6)
[2022-05-06 03:04] LABS: Troponin I Less than 0.010 ng/mL (< 0.028)
[2022-05-06 03:09] LABS: Anion Gap 15 mmol/L (10-20); BUN (Urea Nitrogen) Less than 4 mg/dL (7.0-18.7); Calc. Creatinine Clearance 0 mL/min (70-130); Calcium 8.5 mg/dL (7.8-10.44); Carbon Dioxide 26 mmol/L (22-29); Chloride 103 mmol/L (98-107); Estimated GFR 115; Glucose 121 mg/dL (70-105); Sodium 141 mmol/L (136-145)
[2022-05-06] MEDS: Furosemide 40 MG/4 ML VIAL SLOW IVP SCH ×2 (06:08→14:16)
[2022-05-06 07:09] LABS: Troponin I Less than 0.010 ng/mL (< 0.028)
[2022-05-06] MEDS ORDERED: Magnesium 2 GM/50 ML(in water) 2 GM in Premix Bag 1 BAG IVPB SCH ×2 (07:30→08:30)
[2022-05-06] MEDS ORDERED: Lorazepam 1 MG TAB PO PRN (08:28)
[2022-05-06] MEDS ORDERED: Lorazepam 2 MG/ML VIAL IM PRN (08:28)
[2022-05-06] MEDS ORDERED: Electrolyte Replacement Protocol 1 EACH FS SCH (08:30)
[2022-05-06] MEDS ORDERED: FLU VACC QS2022-23(6MOS UP)/PF 60 MCG/0.5 ML SYRINGE IM ONE (09:00)
[2022-05-06] MEDS: Enoxaparin Sodium 40 MG/0.4 ML SYRINGE SC SCH (09:21)
[2022-05-06 09:46] LABS: ALT (SGPT) 68 U/L (8-55); AST (SGOT) 37 U/L (5-34); Albumin 4.2 g/dL (3.5-5.0); Alkaline Phosphatase 108 U/L (40-110); Anion Gap 15 mmol/L (10-20); BUN (Urea Nitrogen) Less than 4 mg/dL (7.0-18.7); Bilirubin, Direct 0.6 mg/dL (0.1-0.3); Bilirubin, Total 1.5 mg/dL (0.2-1.2); Calc. Creatinine Clearance 0 mL/min (70-130); Calcium 8.3 mg/dL (7.8-10.44); Carbon Dioxide 27 mmol/L (22-29); Chloride 100 mmol/L (98-107); Estimated GFR 112; Globulin 3.2 g/dL (2.4-3.5); Glucose 125 mg/dL (70-105); Magnesium 1.4 mg/dL (1.6-2.6); Phosphorus 2.7 mg/dL (2.3-4.7); Potassium 3.3 mmol/L (3.5-5.1); Protein, Total 7.4 g/dL (6.0-8.3); Sodium 139 mmol/L (136-145)
[2022-05-06] MEDS: Folic Acid 1 MG TAB PO SCH (10:10)
[2022-05-06] MEDS: Thiamine HCl 200 MG/2 ML VIAL SLOW IVP SCH (10:10)
[2022-05-06] MEDS: Multivit, Therapeutic 1 TAB PO SCH (10:10)
[2022-05-06] MEDS: Lorazepam 1 MG TAB PO SCH ×3 (10:10→20:57)
[2022-05-06 13:19] LABS: #Eosinphils 0.1 thou/uL (0.0-0.7); #Lymphocytes 1.6 thou/uL (1.20-3.40); #Monocytes 0.8 thou/uL (0.11-0.59); #Neutrophils 8.2 thou/uL (1.40-6.50); %Basophils 0.3 % (0.0-1.0); %Eosinophils 0.5 % (0.0-10.0); %Lymphocytes 14.5 % (21.0-51.0); %Monocytes 7.4 % (0.0-10.0); %Neutrophils 77.3 % (42.0-75.0); Mean Corpuscular HGB CONC 32.6 g/dL (32.0-36.0); Mean Corpuscular Hemoglobin 22.8 pg (27.0-31.0); Mean Platelet Volume 9.7 fL (7.4-10.4); Platelet Count 233 thou/uL (130-400); RBC Distribution Width 14.8 % (11.5-14.5); Red Blood Cell (RBC) Count 5.24 mill/uL (4.20-5.40); White Blood Cell (WBC) Count 10.7 thou/uL (4.8-10.8)
[2022-05-06 15:04] LABS: Syphilis Antibody Nonreactive (Nonreactive); Syphilis Antibody Index 0.03 S/CO (<1.00 Non-Reactive)
[2022-05-06] MEDS ORDERED: Sodium Chloride 0.9% 1,000 ML IV SCH (18:15)
[2022-05-07] MEDS: Acetaminophen 325 MG TAB PO PRN ×2 (00:13→19:41)
[2022-05-07] MEDS: Lorazepam 1 MG TAB PO SCH ×4 (02:47→19:41)
[2022-05-07 04:49] LABS: #Eosinphils 0.1 thou/uL (0.0-0.7); #Lymphocytes 1.4 thou/uL (1.20-3.40); #Monocytes 0.5 thou/uL (0.11-0.59); #Neutrophils 5.1 thou/uL (1.40-6.50); %Basophils 0.2 % (0.0-1.0); %Eosinophils 1.9 % (0.0-10.0); %Lymphocytes 19.9 % (21.0-51.0); %Monocytes 6.5 % (0.0-10.0); %Neutrophils 71.6 % (42.0-75.0); Hemoglobin 11.8 g/dL (12.0-16.0); Mean Corpuscular HGB CONC 33.4 g/dL (32.0-36.0); Mean Corpuscular Hemoglobin 23.5 pg (27.0-31.0); Mean Corpuscular Volume 70.2 fL (78.0-98.0); Mean Platelet Volume 9.6 fL (7.4-10.4); Platelet Count 196 thou/uL (130-400); RBC Distribution Width 14.9 % (11.5-14.5); Red Blood Cell (RBC) Count 5.05 mill/uL (4.20-5.40); White Blood Cell (WBC) Count 7.1 thou/uL (4.8-10.8)
[2022-05-07 05:15] LABS: ALT (SGPT) 54 U/L (8-55); AST (SGOT) 27 U/L (5-34); Albumin 3.9 g/dL (3.5-5.0); Alkaline Phosphatase 99 U/L (40-110); Anion Gap 11 mmol/L (10-20); BUN (Urea Nitrogen) 8 mg/dL (7.0-18.7); Bilirubin, Total 1.8 mg/dL (0.2-1.2); Calc. Creatinine Clearance 0 mL/min (70-130); Calcium 8.6 mg/dL (7.8-10.44); Carbon Dioxide 27 mmol/L (22-29); Chloride 98 mmol/L (98-107); Estimated GFR 113; Globulin 2.8 g/dL (2.4-3.5); Glucose 117 mg/dL (70-105); Magnesium 1.9 mg/dL (1.6-2.6); Phosphorus 3.2 mg/dL (2.3-4.7); Potassium 3.1 mmol/L (3.5-5.1); Protein, Total 6.7 g/dL (6.0-8.3); Sodium 133 mmol/L (136-145)
[2022-05-07] MEDS: Furosemide 40 MG/4 ML VIAL SLOW IVP SCH ×2 (05:47→13:41)
[2022-05-07] MEDS ORDERED: Potassium Chloride 20 MEQ TAB PO SCH (08:00)
[2022-05-07] MEDS ORDERED: Magnesium 2 GM/50 ML(in water) 2 GM in Premix Bag 1 BAG IVPB SCH (08:00)
[2022-05-07] MEDS ORDERED: Lorazepam 1 MG TAB PO PRN (08:29)
[2022-05-07] MEDS: Multivit, Therapeutic 1 TAB PO SCH (08:36)
[2022-05-07] MEDS: Folic Acid 1 MG TAB PO SCH (08:36)
[2022-05-07] MEDS: Enoxaparin Sodium 40 MG/0.4 ML SYRINGE SC SCH (08:36)
[2022-05-07] MEDS: Thiamine HCl 200 MG/2 ML VIAL SLOW IVP SCH (09:48)
[2022-05-07 12:20] VITALS: BMI 44.2
[2022-05-08] MEDS: Lorazepam 1 MG TAB PO SCH (03:17)
[2022-05-08] MEDS: Furosemide 40 MG/4 ML VIAL SLOW IVP SCH (06:08)
[2022-05-08] MEDS ORDERED: Lorazepam 1 MG TAB PO PRN (08:29)
[2022-05-08] MEDS: Thiamine HCl 200 MG/2 ML VIAL SLOW IVP SCH (09:03)
[2022-05-08] MEDS: Multivit, Therapeutic 1 TAB PO SCH (09:04)
[2022-05-08] MEDS: Folic Acid 1 MG TAB PO SCH (09:04)
[2022-05-08] MEDS: Enoxaparin Sodium 40 MG/0.4 ML SYRINGE SC SCH (09:04)
[2022-05-08] MEDS: Lorazepam 0.5 MG TAB PO SCH ×3 (09:04→21:10)
[2022-05-08] MEDS ORDERED: Iopamidol-370 76% 500 ML 1 ML ONE (10:11)
[2022-05-08 10:52] LABS: Troponin I Less than 0.010 ng/mL (< 0.028)
[2022-05-08] MEDS ORDERED: Potassium Chloride 20 MEQ TAB PO SCH (12:45)
[2022-05-08] MEDS ORDERED: Lactated Ringer's 1,000 ML IV SCH (13:00)
[2022-05-08] MEDS: Acetaminophen 500 MG TAB PO SCH ×3 (13:39→21:10)
[2022-05-08] MEDS: Lactated Ringer's 1,000 ML IV SCH ×2 (16:58→22:44)
[2022-05-09] MEDS: Lorazepam 0.5 MG TAB PO SCH (03:18)
[2022-05-09] MEDS ORDERED: Lorazepam 0.5 MG TAB PO PRN (08:29)
[2022-05-09] MEDS ORDERED: Thiamine 100 MG TAB PO SCH (09:00)
[2022-05-09] MEDS: Folic Acid 1 MG TAB PO SCH (10:15)
[2022-05-09] MEDS: Acetaminophen 500 MG TAB PO SCH (10:15)
[2022-05-09] MEDS: Multivit, Therapeutic 1 TAB PO SCH (10:16)
[2022-05-09] MEDS: Enoxaparin Sodium 40 MG/0.4 ML SYRINGE SC SCH (10:16)
[2022-05-09 10:27] LABS: #Eosinphils 0.2 thou/uL (0.0-0.7); #Lymphocytes 1.3 thou/uL (1.20-3.40); #Monocytes 0.5 thou/uL (0.11-0.59); #Neutrophils 4.1 thou/uL (1.40-6.50); %Basophils 0.2 % (0.0-1.0); %Eosinophils 3.4 % (0.0-10.0); %Lymphocytes 21.9 % (21.0-51.0); %Monocytes 7.9 % (0.0-10.0); %Neutrophils 66.6 % (42.0-75.0); Hemoglobin 12.4 g/dL (12.0-16.0); Mean Corpuscular HGB CONC 31.6 g/dL (32.0-36.0); Mean Corpuscular Hemoglobin 22.3 pg (27.0-31.0); Mean Corpuscular Volume 70.7 fl (78.0-98.0); Mean Platelet Volume 10.1 fL (7.4-10.4); Platelet Count 203 thou/uL (130-400); RBC Distribution Width 14.5 % (11.5-14.5); Red Blood Cell (RBC) Count 5.56 mill/uL (4.20-5.40); White Blood Cell (WBC) Count 6.1 thou/uL (4.8-10.8)
[2022-05-09 10:58] LABS: ALT (SGPT) 81 U/L (8-55); AST (SGOT) 78 U/L (5-34); Albumin 4.1 g/dL (3.5-5.0); Alkaline Phosphatase 103 U/L (40-110); Anion Gap 13 mmol/L (10-20); BUN (Urea Nitrogen) 12 mg/dL (7.0-18.7); Bilirubin, Total 1.7 mg/dL (0.2-1.2); Calc. Creatinine Clearance 208 mL/min (70-130); Calcium 9.4 mg/dL (7.8-10.44); Carbon Dioxide 24 mmol/L (22-29); Chloride 102 mmol/L (98-107); Estimated GFR 112; Glucose 100 mg/dL (70-105); Magnesium 2.2 mg/dL (1.6-2.6); Phosphorus 3.3 mg/dL (2.3-4.7); Potassium 4.1 mmol/L (3.5-5.1); Protein, Total 7.1 g/dL (6.0-8.3); Sodium 135 mmol/L (136-145)
[2022-05-09 12:59] VITALS: BP 125/67; TEMP 97.6
== END 2022-05-09 15:20 | disposition home or self-care (01) | DRG 896 ==
LOC: ERS 21:19 → 2NO 23:27
PROVIDERS: ADMIT Internal Medicine; ATTEND Internal Medicine
DX: F10.129 Alcohol abuse with intoxication, unspecified (principal); I50.23 Acute on chronic systolic (congestive) heart failure; Z68.41 Body mass index [BMI] 40.0-44.9, adult; I42.9 Cardiomyopathy, unspecified; I11.0 Hypertensive heart disease with heart failure; D56.9 Thalassemia, unspecified; M54.9 Dorsalgia, unspecified; G89.29 Other chronic pain; Z20.822 Contact with and (suspected) exposure to COVID-19; F41.9 Anxiety disorder, unspecified; F32.A Depression, unspecified; F17.210 Nicotine dependence, cigarettes, uncomplicated; Y90.7 Blood alcohol level of 200-239 mg/100 ml; F15.10 Other stimulant abuse, uncomplicated; E87.6 Hypokalemia; E66.01 Morbid (severe) obesity due to excess calories; Z98.51 Tubal ligation status; F15.129 Other stimulant abuse with intoxication, unspecified
CPT/HCPCS: 36415; 71045; 71275; 80048; 80053; 80306; 80307; 81003; 81015; 82248; 82550; 83690; 83735; 83880; 84100; 84443; 84484; 84703; 85025; 85379; 86780; 93005; 93010; 93306; 93798; 94640; 96374; 97139; J1650; J1940; J3411; J3475; J7050; J7120; J7620; Q9967; U0003; U0005

== ENCOUNTER 2022-09-14 08:47 | Emergency (ER) | payer SELFPAY ==
[2022-09-14] MEDS ORDERED: Dexamethasone 10 MG/ML VIAL ONE (09:31)
[2022-09-14] MEDS ORDERED: Ketorolac Tromethamine 30 MG/ML VIAL ONE (09:31)
[2022-09-14 09:53] LABS: Bilirubin Negative (Negative); Blood, Urine Small (Negative); Glucose, Urine (Dipstick) 100 mg/dL (Negative); Ketone, Urine Trace mg/dL (Negative); Leukocyte Trace (Negative); Nitrite Negative (Negative); Protein, Urine (Dipstick) 30 mg/dL (Neg-Trace); pH, Urine 7.5 (5.0-9.0)
[2022-09-14 09:58] LABS: Clarity Hazy (Clear)
[2022-09-14 10:00] LABS: Pregnancy Test - Urine (BHCG) Negative (Negative); Pregu Control Background? CLEAR/WHITE (CLR/WHITE); Pregu Control Bar Appear? YES (CONTROL BAR)
[2022-09-14 10:16] LABS: Bacteria/HPF Rare-Few HPF (None Seen); WBC/HPF 0-3 HPF (0-3)
== END 2022-09-14 10:28 | disposition home or self-care (01) ==
LOC: ERS 08:47
DX: M54.50 Low back pain, unspecified (principal); I11.0 Hypertensive heart disease with heart failure; I50.9 Heart failure, unspecified; F17.210 Nicotine dependence, cigarettes, uncomplicated
CPT/HCPCS: 81003; 81015; 81025; 99283; J1100; J1885

== ENCOUNTER 2023-03-29 10:03 | Emergency (ER) | payer SELFPAY ==
[2023-03-29 11:14] LABS: #Eosinphils 0.2 thou/uL (0.0-0.7); #Monocytes 0.7 thou/uL (0.11-0.59); #Neutrophils 7.6 thou/uL (1.40-6.50); %Basophils 0.4 % (0.0-1.0); %Eosinophils 1.7 % (0.0-10.0); %Neutrophils 73.4 % (42.0-75.0); Hematocrit 36.4 % (36.0-47.0); Hemoglobin 11.8 g/dL (12.0-16.0); Mean Corpuscular HGB CONC 32.4 g/dL (32.0-36.0); Mean Corpuscular Hemoglobin 23.4 pg (27.0-31.0); Mean Corpuscular Volume 72.2 fl (78.0-98.0); Mean Platelet Volume 10.3 fL (7.4-10.4); Platelet Count 222 10x3/uL (130-400); RBC Distribution Width 19.1 % (11.5-14.5); Red Blood Cell (RBC) Count 5.04 mill/uL (4.20-5.40); White Blood Cell (WBC) Count 10.4 10x3/uL (4.8-10.8)
[2023-03-29 11:22] LABS: BHCG - Serum Negative (NEGATIVE); Pregs Control Background? CLEAR/WHITE (CLR/WHITE); Pregs Control Bar Appear? YES (CONTROL BAR)
[2023-03-29 11:47] LABS: Troponin I Less than 0.010 ng/mL (< 0.028)
[2023-03-29 11:49] LABS: Anisocytosis SLIGHT = 6-15 cells HPF (0-5); CellaVision Operator ID lab.dlt; Platelet Adequacy Comment Platelets Normal; Poikilocytosis SLIGHT = 6-15 cells HPF (0-5); Polychromasia SLIGHT = 2-3 cells HPF (0-2)
[2023-03-29 12:05] LABS: ALT (SGPT) 54 U/L (8-55); AST (SGOT) 66 U/L (5-34); Albumin 3.7 g/dL (3.5-5.0); Alkaline Phosphatase 97 U/L (40-110); Anion Gap 12 mmol/L (10-20); BUN (Urea Nitrogen) 7 mg/dL (7.0-18.7); Bilirubin, Total 1.3 mg/dL (0.2-1.2); Calc. Creatinine Clearance 0 mL/min (70-130); Calcium 8.8 mg/dL (7.8-10.44); Carbon Dioxide 26 mmol/L (22-29); Chloride 104 mmol/L (98-107); Estimated GFR 109; Globulin 3.5 g/dL (2.4-3.5); Glucose 107 mg/dL (70-105); Potassium 4.4 mmol/L (3.5-5.1); Protein, Total 7.2 g/dL (6.0-8.3); Sodium 138 mmol/L (136-145)
[2023-03-29] MEDS ORDERED: Ketorolac Tromethamine 30 MG/ML VIAL ONE (12:41)
== END 2023-03-29 13:00 | disposition home or self-care (01) ==
LOC: ERS 10:03
DX: R22.41 Localized swelling, mass and lump, right lower limb (principal); R07.9 Chest pain, unspecified; I11.0 Hypertensive heart disease with heart failure; I50.9 Heart failure, unspecified; F17.210 Nicotine dependence, cigarettes, uncomplicated
CPT/HCPCS: 71045; 80053; 83880; 84484; 84703; 85025; 85379; 93005; 96374; J1885

== ENCOUNTER 2023-06-30 14:53 | Emergency (ER) | payer SELFPAY ==
[2023-06-30 15:27] LABS: #Eosinphils 0.1 thou/uL (0.0-0.7); #Monocytes 0.5 thou/uL (0.11-0.59); #Neutrophils 7.3 thou/uL (1.40-6.50); %Basophils 0.3 % (0.0-1.0); %Eosinophils 0.8 % (0.0-10.0); %Lymphocytes 11.4 % (21.0-51.0); %Monocytes 5.1 % (0.0-10.0); %Neutrophils 82.2 % (42.0-75.0); Hematocrit 37.1 % (36.0-47.0); Hemoglobin 12.2 g/dL (12.0-16.0); Mean Corpuscular HGB CONC 32.9 g/dL (32.0-36.0); Mean Corpuscular Hemoglobin 23.9 pg (27.0-31.0); Mean Corpuscular Volume 72.7 fl (78.0-98.0); Mean Platelet Volume 8.6 fL (7.4-10.4); Platelet Count 157 10x3/uL (130-400); RBC Distribution Width 17.8 % (11.5-14.5); White Blood Cell (WBC) Count 8.8 10x3/uL (4.8-10.8)
[2023-06-30 15:53] LABS: ALT (SGPT) 58 U/L (8-55); AST (SGOT) 121 U/L (5-34); Albumin 3.8 g/dL (3.5-5.0); Alkaline Phosphatase 100 U/L (40-110); Anion Gap 18 mmol/L (10-20); Anisocytosis SLIGHT = 6-15 cells HPF (0-5); BUN (Urea Nitrogen) 6 mg/dL (7.0-18.7); Bilirubin, Total 3.5 mg/dL (0.2-1.2); Calc. Creatinine Clearance 0 mL/min (70-130); Calcium 8.9 mg/dL (7.8-10.44); Carbon Dioxide 30 mmol/L (22-29); CellaVision Operator ID LAB.KB; Chloride 96 mmol/L (98-107); Estimated GFR 113; Globulin 3.4 g/dL (2.4-3.5); Glucose 103 mg/dL (70-105); Hypochromia SLIGHT = 6-15 cells HPF (0-5); Lipase 12 U/L (8-78); Microcytosis SLIGHT = 6-15 cells HPF (0-5); Platelet Adequacy Comment Platelets Normal; Polychromasia SLIGHT = 2-3 cells HPF (0-2); Potassium 3.1 mmol/L (3.5-5.1); Protein, Total 7.2 g/dL (6.0-8.3); Sodium 141 mmol/L (136-145); Target Cells MODERATE= 6-15 cells HPF (0-1)
[2023-06-30 15:57] LABS: Bilirubin Moderate (Negative); Blood, Urine Large (Negative); Glucose, Urine (Dipstick) 100 mg/dL (Negative); Ketone, Urine Negative (Negative); Leukocyte Negative (Negative); Nitrite Positive (Negative); Protein, Urine (Dipstick) 30 mg/dL (Neg-Trace); Urobilinogen > or = 8.0 mg/dL (Less than 2); pH, Urine 8.5 (5.0-9.0)
[2023-06-30] MEDS ORDERED: Ondansetron PF 4 MG/2 ML Vial ONE ×2 (15:57→17:01)
[2023-06-30] MEDS ORDERED: Ketorolac Tromethamine 30 MG/ML VIAL ONE (15:57)
[2023-06-30 16:02] LABS: Clarity Slightly Cloudy (Clear)
[2023-06-30 16:04] LABS: Bacteria/HPF 1+ HPF (None Seen); CAUTI Indications for Culture Dysuria,urgency,freq; WBC/HPF 0-3 HPF (0-3)
[2023-06-30 16:05] LABS: Urine Culture Reflex No No
[2023-06-30 16:08] LABS: Troponin I Less than 0.010 ng/mL (< 0.028)
[2023-06-30] MEDS ORDERED: Potassium Chloride 20 MEQ TAB ONE (16:56)
[2023-06-30 16:57] LABS: SARS-CoV-2 NAA Rapid Test Not Detected (NotDetected)
[2023-06-30] MEDS ORDERED: Ondansetron ODT 4 MG TAB ONE (17:00)
[2023-06-30] MEDS ORDERED: Lidocaine 2% Viscous Solution 10 ML, Aluminum & Magnesium Hydroxide 30 ML SSW SCH (18:00)
[2023-06-30] MEDS ORDERED: Metoclopramide HCl 10 MG/2 ML VIAL ONE (18:04)
[2023-06-30] MEDS ORDERED: diphenhydrAMINE 50 MG/ML VIAL ONE (18:22)
== END 2023-06-30 20:18 | disposition home or self-care (01) ==
LOC: ERS 14:53
DX: K82.8 Other specified diseases of gallbladder (principal); I11.0 Hypertensive heart disease with heart failure; I50.9 Heart failure, unspecified; F17.210 Nicotine dependence, cigarettes, uncomplicated
CPT/HCPCS: 36415; 71045; 76705; 80053; 81001; 83690; 83880; 84484; 85025; 93005; 96365; 96375; 96376; J1200; J1885; J2405; J2765; Q0162

== ENCOUNTER 2023-09-14 14:27 | Emergency (ER) | payer SELFPAY ==
[2023-09-14] MEDS ORDERED: Ketorolac Tromethamine 30 MG (1 mL) VIAL ONE (15:45)
[2023-09-14] MEDS ORDERED: Dexamethasone 4 MG TAB ONE (16:22)
== END 2023-09-14 17:03 | disposition home or self-care (01) ==
LOC: ERS 14:27
DX: M79.671 Pain in right foot (principal); M79.672 Pain in left foot; I11.0 Hypertensive heart disease with heart failure; I50.9 Heart failure, unspecified; F17.210 Nicotine dependence, cigarettes, uncomplicated
CPT/HCPCS: 96372; 99283; J1885; J8540

== ENCOUNTER 2024-04-02 13:01 | Emergency (ER) | payer SELFPAY ==
[2024-04-02 13:50] LABS: #Basophils Less than 0.03 10x3/uL (0.0-0.2); %Basophils 0.1 % (0.0-1.0); %Eosinophils 2.9 % (0.0-10.0); %Lymphocytes 12.1 % (21.0-51.0); %Neutrophils 78.5 % (42.0-75.0); Hematocrit 32.8 % (36.0-47.0); Hemoglobin 10.4 g/dL (12.0-16.0); Mean Corpuscular HGB CONC 31.7 g/dL (32.0-36.0); Mean Corpuscular Hemoglobin 21.9 pg (27.0-31.0); Mean Corpuscular Volume 69.2 fL (78.0-98.0); Platelet Count 246 10x3/uL (130-400); RBC Distribution Width 19.4 % (11.5-14.5); Red Blood Cell (RBC) Count 4.74 mill/uL (4.20-5.40)
[2024-04-02] MEDS ORDERED: Ondansetron PF 4 MG/2 ML Vial ONE (14:01)
[2024-04-02] MEDS ORDERED: Ketorolac Tromethamine 30 MG (1 mL) VIAL ONE (14:01)
[2024-04-02 14:05] LABS: ALT (SGPT) 12 U/L (8-55); AST (SGOT) 19 U/L (5-34); Albumin 3.3 g/dL (3.5-5.0); Alkaline Phosphatase 78 U/L (40-110); Anion Gap 10 mmol/L (10-20); BUN (Urea Nitrogen) 7 mg/dL (7.0-18.7); Bilirubin, Total 1.6 mg/dL (0.2-1.2); Calc. Creatinine Clearance 0 mL/min (70-130); Calcium 9.1 mg/dL (7.8-10.44); Carbon Dioxide 25 mmol/L (22-29); Chloride 103 mmol/L (98-107); Estimated GFR 114; Globulin 3.4 g/dL (2.4-3.5); Glucose 89 mg/dL (70-105); Lipase 12 U/L (8-78); Potassium 3.4 mmol/L (3.5-5.1); Protein, Total 6.7 g/dL (6.0-8.3); Sodium 135 mmol/L (136-145)
[2024-04-02 14:09] LABS: Anisocytosis SLIGHT = 6-15 cells HPF (0-5); Hypochromia SLIGHT = 6-15 cells HPF (0-5); Microcytosis SLIGHT = 6-15 cells HPF (0-5); Platelet Adequacy Comment Platelets Normal; Polychromasia SLIGHT = 2-3 cells HPF (0-2); Tear Drops SLIGHT = 2-5 cells HPF (0-1)
[2024-04-02 14:11] LABS: Bacteria/HPF 4+ HPF (None Seen); Bilirubin Negative (Negative); Blood, Urine 1+ (Negative); CAUTI Indications for Culture Dysuria,urgency,freq; Clarity Turbid (Clear); Glucose, Urine (Dipstick) Normal (Negative); Ketone, Urine 10 mg/dL (Negative); Leukocyte 250 Leu/uL (Negative); Nitrite 2+ (Negative); Protein, Urine (Dipstick) 20 mg/dL (Neg-Trace); RBC/HPF 0-3 HPF (0-3); Specific Gravity, Urine 1.022 (1.002-1.036); Urobilinogen Normal mg/dL (Less than 2); WBC/HPF 21-50 HPF (0-3)
[2024-04-02 14:12] LABS: Urine Culture Reflex Yes Yes
[2024-04-02 14:16] LABS: Troponin I Less than 0.010 ng/mL (< 0.028)
[2024-04-02 14:24] LABS: Pregnancy Test - Urine (BHCG) Negative (Negative); Pregu Control Background? CLEAR/WHITE (CLR/WHITE); Pregu Control Bar Appear? YES (CONTROL BAR)
[2024-04-02] MEDS ORDERED: cefTRIAXone (ROCEPHIN) 1 GM VIAL ONE (15:22)
[2024-04-02] MEDS ORDERED: Sodium Chloride 0.9% 100 ML ONE (15:23)
[2024-04-02] MEDS ORDERED: Acetaminophen 500 MG TAB ONE (16:11)
== END 2024-04-02 16:30 | disposition home or self-care (01) ==
LOC: ERS 13:01
DX: K52.9 Noninfective gastroenteritis and colitis, unspecified (principal); N10 Acute pyelonephritis; F17.210 Nicotine dependence, cigarettes, uncomplicated; I11.0 Hypertensive heart disease with heart failure; I50.9 Heart failure, unspecified
CPT/HCPCS: 36415; 71045; 74177; 76705; 80053; 81001; 81025; 83690; 83880; 84484; 85025; 87077; 87086; 93005; 96374; 96375; J0696; J1885; J2405